=== PATIENT | female | born 1955 | race Caucasian/White ===

== ENCOUNTER 2018-01-04 11:19 | Emergency (ER) | payer MEDICAID ==
[~2018-01-04] VITALS: Ht 167.6 cm; Wt 80.4 kg
[~2018-01-04 11:19] MED LIST: NO HOME MEDS
[2018-01-04 11:47] LABS: BASOPHILS % (AUTO) 0.3 % (0-1); EOSINOPHILS % (AUTO) 0.6 % (0-6); HEMATOCRIT 35.5 % (35.0-45.0); HEMOGLOBIN 12.6 g/dl (12.0-16.0); LYMPHOCYTES # (AUTO) 2.2 X10'3 (1.1-4.8); LYMPHOCYTES % (AUTO) 43.9 % (21-51); MEAN CORPUSCULAR HEMOGLOBIN 30.5 PG (27.0-31.0); MEAN CORPUSCULAR HGB CONC 35.4 % (33.0-36.5); MEAN CORPUSCULAR VOLUME 86.3 FL (78-98); MEAN PLATELET VOLUME 7.2 FL (7.4-10.4); MONOCYTES # (AUTO) 0.7 X10'3 (0-0.9); MONOCYTES % (AUTO) 14.1 % (2-12); NEUTROPHILS # (AUTO) 2.1 X10'3 (1.8-7.7); NEUTROPHILS % (AUTO) 41.1 % (42-75); PLATELET COUNT 113 X10'3 (140-440); RED BLOOD COUNT 4.11 X10'6 (4.20-5.60); RED CELL DISTRIBUTION WIDTH 13.6 % (11.5-14.5)
[2018-01-04 12:03] LABS: ALANINE AMINOTRANSFERASE 105 U/L (12-78); ALBUMIN 3.3 G/DL (3.4-5.0); ALBUMIN/GLOBULIN RATIO 0.6 (1.1-1.5); ALKALINE PHOSPHATASE 71 IU/L (46-116); ANION GAP 10 (8-16); ASPARTATE AMINO TRANSFERASE 95 U/L (10-37); BILIRUBIN,TOTAL 0.8 MG/DL (0.1-1.0); BLOOD UREA NITROGEN 16 MG/DL (7-18); CHLORIDE 106 MMOL/L (99-107); CREATININE 0.94 MG/DL (0.40-0.90); POTASSIUM 3.8 MMOL/L (3.5-5.1); SODIUM 141 MMOL/L (135-145); TOTAL CARBON DIOXIDE 25.4 MMOL/L (24-32); TOTAL PROTEIN 8.9 G/DL (6.4-8.2); eGFR 61 ML/MIN
[2018-01-04 12:04] LABS: GLUCOSE 95 MG/DL (70-104)
[2018-01-04 12:11] LABS: INR 1.1 INR; PARTIAL THROMBOPLASTIN TIME 27 SECONDS (22-32); PROTHROMBIN TIME 10.4 SECONDS (9.0-12.0)
[2018-01-04] MEDS ORDERED: aspirin 325mg tablet PO ONE (13:45)
[2018-01-04 14:26] VITALS: BP 144/78
== END 2018-01-04 14:27 | disposition left against medical advice (07) ==
LOC: ER 11:20
DX: R07.89 Other chest pain (principal); R00.0 Tachycardia, unspecified; I10 Essential (primary) hypertension; Z88.5 Allergy status to narcotic agent
CPT/HCPCS: 36415; 71045; 80053; 84484; 85025; 85610; 85730; 93005; 99285

== ENCOUNTER 2021-02-28 12:23 | Emergency (ER) | payer MEDICAID | END 2021-02-28 13:10 | disposition left against medical advice (07) | LOC: ER 12:23 | DX: T63.301A Toxic effect of unspecified spider venom, accidental (unintentional), initial encounter (principal); Z53.21 Procedure and treatment not carried out due to patient leaving prior to being seen by health care provider; X58.XXXA Exposure to other specified factors, initial encounter ==

== ENCOUNTER 2022-04-16 22:36 | Inpatient (IN) | payer MEDICAID ==
[~2022-04-16] VITALS: Ht 167.6 cm; Wt 95.0 kg
[2022-04-16 23:44] LABS: BASOPHILS % (AUTO) 0.3 % (0-1); EOSINOPHILS % (AUTO) 0.5 % (0-6); HEMATOCRIT 36.9 % (35.0-45.0); HEMOGLOBIN 12.8 g/dl (12.0-16.0); LYMPHOCYTES # (AUTO) 1.6 X10'3 (1.1-4.8); LYMPHOCYTES % (AUTO) 34.1 % (21-51); MEAN CORPUSCULAR HEMOGLOBIN 29.3 PG (27.0-31.0); MEAN CORPUSCULAR HGB CONC 34.6 g/dL (33.0-36.5); MEAN CORPUSCULAR VOLUME 84.5 FL (78-98); MEAN PLATELET VOLUME 8.1 FL (7.4-10.4); MONOCYTES # (AUTO) 2.2 X10'3 (0-0.9); MONOCYTES % (AUTO) 45.2 % (2-12); NEUTROPHILS % (AUTO) 19.9 % (42-75); PLATELET COUNT 84 X10'3 (140-440); RED BLOOD COUNT 4.36 X10'6 (4.20-5.60); RED CELL DISTRIBUTION WIDTH 14.7 % (11.5-14.5); WHITE BLOOD COUNT 4.8 X10'3 (4.5-11.0)
[2022-04-17 00:16] LABS: ALANINE AMINOTRANSFERASE 55 U/L (12-78); ALBUMIN 2.5 G/DL (3.4-5.0); ALBUMIN/GLOBULIN RATIO 0.4 (1.1-1.5); ALKALINE PHOSPHATASE 57 IU/L (46-116); ANION GAP 6 (8-16); ASPARTATE AMINO TRANSFERASE 77 U/L (10-37); BILIRUBIN,TOTAL 1.2 MG/DL (0.1-1.0); BLOOD UREA NITROGEN 12 MG/DL (7-18); BUN/CREATININE RATIO 14.3 (6.6-38.0); CHLORIDE 105 MMOL/L (99-107); CREATININE 0.84 MG/DL (0.40-0.90); SODIUM 137 MMOL/L (135-145); TOTAL CARBON DIOXIDE 25.8 MMOL/L (24-32); TOTAL PROTEIN 8.1 G/DL (6.4-8.2); eGFR 68 ML/MIN
[2022-04-17 00:18] LABS: GLUCOSE 152 MG/DL (70-104)
[2022-04-17 00:19] LABS: POTASSIUM 2.8 MMOL/L (3.5-5.1)
[2022-04-17] MEDS ORDERED: ringers solution, lactated 1000ml IV soln IV ONE (00:25)
[2022-04-17] MEDS ORDERED: potassium Cl 10 mEq/100mL bag IV ONE (00:25)
[2022-04-17] MEDS ORDERED: POTASSIUM BICARB 20meq eff tab 20 MEQ TABLET.EFF PO ONE ×2 (00:25)
[2022-04-17 01:03] LABS: TOTAL CELLS COUNTED 100
[2022-04-17 01:06] LABS: PLATELET ESTIMATE DECREASED
[2022-04-17] MEDS ORDERED: LIDOcaine 1% W/epiNEPHrine 1:100,000 20ml vial SQ ONE (03:30)
[2022-04-17 04:08] LABS: COLOR,URINE YELLOW (Yellow); GLUCOSE, URINE NEGATIVE (Neg); KETONES,URINE NEGATIVE (Neg); LEUKOCYTE ESTERASE ,URINE NEGATIVE (Neg); NITRITES, URINE NEGATIVE (Neg); OCCULT BLOOD,URINE MODERATE (Neg); PROTEIN,URINE NEGATIVE (Neg)
[2022-04-17 04:09] LABS: CLARITY,URINE SLIGHTLY CLOUDY (Clear)
[2022-04-17] MEDS ORDERED: diltiazem 5mg/ml 5ml inj. IV ONE (04:25)
[2022-04-17] MEDS ORDERED: enoxaparin 100mg/ml syringe SUBCUT ONE ×2 (04:25)
[2022-04-17 04:27] LABS: BACTERIA,URINE NONE SEEN /HPF (Neg); MUCUS STRANDS NONE SEEN /LPF (Neg); RBC,URINE 0-2 /HPF (0-2); SQUAMOUS EPITHELIAL CELL,UR MODERATE /LPF (FEW); UA COLLECTION TYPE CLN CATCH MIDSTREAM; WBC,URINE 0-4 /HPF (0-4)
[2022-04-17] MEDS ORDERED: diltiazem-NS 100mg/100ml 100 ML IV SCH (04:30)
[2022-04-17] MEDS ORDERED: HYDROcodone/acetaminophen 5mg/325mg tablet PO PRN (05:05)
[2022-04-17] MEDS ORDERED: magnesium Cl slow-release 64mg tablet PO PRN (05:05)
[2022-04-17] MEDS ORDERED: POTASSIUM BICARB 20meq eff tab 20 MEQ TABLET.EFF PO PRN (05:05)
[2022-04-17] MEDS ORDERED: HYDROcodone/acetaminophen 10/325mg tab PO PRN (05:05)
[2022-04-17] MEDS ORDERED: magnesium 4gm in 100ml NS 100 ML IV PRN (05:05)
[2022-04-17] MEDS ORDERED: potassium CL 10mEq/100ml bag 100 ML IV PRN (05:05)
[2022-04-17] MEDS ORDERED: magnesium hydroxide 30ml (MOM) UD suspension PO PRN (05:05)
[2022-04-17] MEDS ORDERED: acetaminophen 325mg tablet PO PRN (05:05)
[2022-04-17] MEDS ORDERED: mag hydrox/Alum hydrox/simeth 30ml oral suspension PO PRN (05:05)
[2022-04-17] MEDS ORDERED: ondansetron/PF 4mg/2ml inj IV PRN (05:05)
[2022-04-17] MEDS ORDERED: magnesium 2GM in 50ml NS 50 ML IV PRN (05:05)
[2022-04-17] MEDS: apixaban 5mg tablet PO SCH ×2 (07:08→20:14)
[2022-04-17] MEDS: metoprolol tartrate 50mg tablet PO SCH ×2 (07:10→20:00)
[2022-04-17] MEDS: docusate sod 100mg capsule PO SCH ×2 (07:35→20:00)
[2022-04-17 07:53] LABS: POTASSIUM 3.3 MMOL/L (3.5-5.1)
[2022-04-17] MEDS: K and/or MAG REPLACEMENT MC SCH ×2 (07:59→20:00)
[2022-04-17] MEDS: POTASSIUM BICARB 20meq eff tab 20 MEQ TABLET.EFF PO PRN ×3 (08:05→21:30)
--- NOTE | 2022-04-17 08:45 | NUR ---
Spoke with Dr Coates regarding patient new onset skip heart rate. pt is assymptomatic to skip rhythm, md advised to just observe the patient and call him back if there are any changes or if the patient becomes symptomatic. Cardizen has been off for approx. 45 minutes.
[2022-04-17 14:51] LABS: APTT 32 SECONDS (22-32); D-DIMER 1.61 MG/L FEU (0-0.50)
[2022-04-17 16:34] VITALS: BP 143/54
[2022-04-17 17:00] VITALS: BP 137/62
[2022-04-17 18:01] VITALS: BP 141/77
--- NOTE | 2022-04-17 18:26 | NUR ---
Problems reprioritized. Patient report given, questions answered & plan of care reviewed with Esther Adams RN.
--- NOTE | 2022-04-17 18:27 | NUR ---
Patient in room CICU 2006. I have received report from Esther Zamora RN and Ewa ALAS and had the opportunity to ask questions and assume patient care.
[2022-04-17 19:00] VITALS: BP 147/60
[2022-04-18] VITALS: BP 160/70
--- NOTE | 2022-04-18 00:06 | NUR ---
patient resting comfortably, heart rate drops down to the mid 40s while sleeping, blood pressure remains in the 140s and patient is asymptomatic.
[2022-04-18 04:00] VITALS: BP 131/71
[2022-04-18 04:11] LABS: BASOPHILS % (AUTO) 0.2 % (0-1); EOSINOPHILS % (AUTO) 0.8 % (0-6); HEMATOCRIT 35.9 % (35.0-45.0); HEMOGLOBIN 12.4 g/dl (12.0-16.0); LYMPHOCYTES # (AUTO) 2.3 X10'3 (1.1-4.8); LYMPHOCYTES % (AUTO) 49.2 % (21-51); MEAN CORPUSCULAR HEMOGLOBIN 29.4 PG (27.0-31.0); MEAN CORPUSCULAR HGB CONC 34.6 g/dL (33.0-36.5); MEAN CORPUSCULAR VOLUME 84.9 FL (78-98); MEAN PLATELET VOLUME 7.9 FL (7.4-10.4); MONOCYTES # (AUTO) 1.6 X10'3 (0-0.9); MONOCYTES % (AUTO) 33.2 % (2-12); NEUTROPHILS # (AUTO) 0.8 X10'3 (1.8-7.7); NEUTROPHILS % (AUTO) 16.6 % (42-75); PLATELET COUNT 87 X10'3 (140-440); RED BLOOD COUNT 4.23 X10'6 (4.20-5.60); WHITE BLOOD COUNT 4.7 X10'3 (4.5-11.0)
[2022-04-18 04:24] LABS: ALANINE AMINOTRANSFERASE 55 U/L (12-78); ALBUMIN 2.4 G/DL (3.4-5.0); ALBUMIN/GLOBULIN RATIO 0.5 (1.1-1.5); ALKALINE PHOSPHATASE 47 IU/L (46-116); ANION GAP 7 (8-16); ASPARTATE AMINO TRANSFERASE 80 U/L (10-37); BILIRUBIN,TOTAL 1.4 MG/DL (0.1-1.0); BLOOD UREA NITROGEN 17 MG/DL (7-18); BUN/CREATININE RATIO 22.7 (6.6-38.0); CALCIUM 8.3 MG/DL (8.5-10.1); CHLORIDE 105 MMOL/L (99-107); CREATININE 0.75 MG/DL (0.40-0.90); POTASSIUM 3.8 MMOL/L (3.5-5.1); SODIUM 138 MMOL/L (135-145); TOTAL CARBON DIOXIDE 26.2 MMOL/L (24-32); TOTAL PROTEIN 7.7 G/DL (6.4-8.2); eGFR 77 ML/MIN
[2022-04-18 04:46] LABS: GLUCOSE 87 MG/DL (70-104)
--- NOTE | 2022-04-18 06:14 | NUR ---
Problems reprioritized. Patient report given, questions answered & plan of care reviewed with debra ALAS.
--- NOTE | 2022-04-18 06:26 | NUR ---
Patient in room CICU 2006. I have received report from Esther ALAS and had the opportunity to ask questions and assume patient care.
[2022-04-18 06:41] LABS: PLATELET ESTIMATE DECREASED; TOTAL CELLS COUNTED 100
[2022-04-18 06:42] LABS: SMUDGE CELLS 1+
[2022-04-18 08:00] VITALS: BP 154/94
[2022-04-18] MEDS: apixaban 5mg tablet PO SCH (08:20)
[2022-04-18] MEDS: docusate sod 100mg capsule PO SCH (08:20)
[2022-04-18] MEDS: K and/or MAG REPLACEMENT MC SCH (08:21)
[2022-04-18] MEDS: metoprolol tartrate 50mg tablet PO SCH (08:23)
--- NOTE | 2022-04-18 08:24 | NUR ---
Meds colace was held per pt request as she states she has diarrhea.
--- NOTE | 2022-04-18 09:15 | NUR ---
AM note Pt comfortable, positioning herself to comfort. Up to bedside commode w/out assistance. No complaint of pain presently. Tolerated breakfast well and feeding independently.
[2022-04-18] MEDS ORDERED: ASPI-611 PO (09:40)
[2022-04-18] MEDS ORDERED: METO50TA16 PO (09:40)
--- NOTE | 2022-04-18 09:48 | NUR ---
MD Visit Dr. Coates here to see pt. Plan is to discharge pt to home.
[2022-04-18 10:50] VITALS: BP 151/86
--- NOTE | 2022-04-18 11:17 | NUR ---
DC Note IV d/c'd with mild bleeding. 2x2 dressing applied with tape as pt on Eliquis. Pt able to dress self. Discharge forms completed and explained to pt. Pt states she has all her belongings in her purse. Discharged in WC to white pickup and friend. Pt loaded safely.
== END 2022-04-18 11:09 | disposition home or self-care (01) | DRG 137 ==
LOC: ER 22:37 → ED HOLD 04-17 05:20 → CICU 2S 04-17 16:33
PROVIDERS: ADMIT Internal Medicine; ATTEND Family Medicine
DX: U07.1 COVID-19 (principal); E44.0 Moderate protein-calorie malnutrition; C44.91 Basal cell carcinoma of skin, unspecified; E87.6 Hypokalemia; I48.0 Paroxysmal atrial fibrillation; R00.1 Bradycardia, unspecified; R74.01 Elevation of levels of liver transaminase levels; I10 Essential (primary) hypertension; Y92.230 Patient room in hospital as the place of occurrence of the external cause; T44.7X5A Adverse effect of beta-adrenoreceptor antagonists, initial encounter; Z28.310 Unvaccinated for COVID-19; Z79.01 Long term (current) use of anticoagulants; Z87.891 Personal history of nicotine dependence; Z91.19 Patient's noncompliance with other medical treatment and regimen; Z68.33 Body mass index [BMI] 33.0-33.9, adult; Z88.5 Allergy status to narcotic agent
CPT/HCPCS: 36415; 71045; 80053; 81001; 83605; 83735; 84132; 84145; 85007; 85025; 85379; 85610; 85730; 87040; 87081; 87502; 87503; 87635; 93306; 96361; 96374; 96375; 99285; A6212; A6258; C9803; G0378; J3480; J3490; J7120

== ENCOUNTER 2023-04-12 05:37 | Inpatient (IN) | payer MEDICAID ==
[2023-04-12] VITALS (19 sets, daily range): BP systolic 90–179; BP diastolic 50–114
[~2023-04-12] VITALS: Ht 167.6 cm; Wt 91.0 kg
[~2023-04-12 05:37] MED LIST changes: +METO50TA16 PO; -NO HOME MEDS
[2023-04-12] MEDS ORDERED: LORazepam 2 mg/ml vial IV ONE (05:45)
[2023-04-12] MEDS ORDERED: methylPREDNISolone sod succ 125mg/2ml vial IV ONE (05:45)
[2023-04-12] MEDS ORDERED: albuterol 2.5 MG/3 ML nebule CONTNEB PRN (05:45)
[2023-04-12] MEDS ORDERED: diltiazem 5mg/ml 5ml inj. IV ONE (05:50)
--- NOTE | 2023-04-12 05:52 | NUR ---
plan to intubate, Dr Ny at bedside, pt is anxious, unable to tolerate bipap
--- NOTE | 2023-04-12 05:55 | NUR ---
0555 Etomidate 20mg IV, Rocuronium 70mg IV given. HR 171, BP 186/137 96% on 0557 cardizem 20mg IV given, 93%, 7.5 ETtube pt intubated, +easy cap, even rise and fall of chest, lung sounds bilaterally, 24 at the gum per RT 0600 HR 188, RR24, 179/114, BVM by RT 88% fi02 100% 0601 solumedrol 125mg IV given
[2023-04-12 06:01] LABS: PLATELET COUNT 155 X10'3 (140-440)
[2023-04-12 06:03] LABS: BASOPHILS # (AUTO) 0.1 X10'3 (0-0.2); BASOPHILS % (AUTO) 0.3 % (0-1); EOSINOPHILS % (AUTO) 0.2 % (0-6); HEMATOCRIT 41.6 % (35.0-45.0); HEMOGLOBIN 13.7 g/dl (12.0-16.0); LYMPHOCYTES # (AUTO) 10.6 X10'3 (1.1-4.8); LYMPHOCYTES % (AUTO) 58.3 % (21-51); MEAN CORPUSCULAR HGB CONC 32.9 g/dL (33.0-36.5); MEAN CORPUSCULAR VOLUME 91.3 FL (78-98); MEAN PLATELET VOLUME 8.8 FL (7.4-10.4); MONOCYTES # (AUTO) 3.3 X10'3 (0-0.9); MONOCYTES % (AUTO) 18.2 % (2-12); NEUTROPHILS # (AUTO) 4.2 X10'3 (1.8-7.7); RED BLOOD COUNT 4.55 X10'6 (4.20-5.60); RED CELL DISTRIBUTION WIDTH 15.8 % (11.5-14.5); WHITE BLOOD COUNT 18.1 X10'3 (4.5-11.0)
[2023-04-12] MEDS ORDERED: LIDOcaine 2% 10ml TOPICAL JELLY (Urojet) TP ONE (06:05)
[2023-04-12 06:09] LABS: ALANINE AMINOTRANSFERASE 50 U/L (12-78); ALBUMIN 3.1 G/DL (3.4-5.0); ALKALINE PHOSPHATASE 92 IU/L (46-116); ANION GAP 13 (8-16); BLOOD UREA NITROGEN 18 MG/DL (7-18); CHLORIDE 103 MMOL/L (99-107); CREATININE 1.06 MG/DL (0.40-0.90); POTASSIUM 3.5 MMOL/L (3.5-5.1); SODIUM 140 MMOL/L (135-145); TOTAL CARBON DIOXIDE 24.3 MMOL/L (24-32); eGFR 52 ML/MIN
[2023-04-12] MEDS ORDERED: diltiazem-NS 100mg/100ml 100 ML IV SCH (06:10)
[2023-04-12 06:22] LABS: ALBUMIN/GLOBULIN RATIO 0.5 (1.1-1.5); ASPARTATE AMINO TRANSFERASE 67 U/L (10-37); BILIRUBIN,TOTAL 1.4 MG/DL (0.1-1.0); CALCIUM 8.6 MG/DL (8.5-10.1); GLUCOSE 140 MG/DL (70-104); TOTAL PROTEIN 8.9 G/DL (6.4-8.2)
[2023-04-12] MEDS: propofol 1000mg/100ml bottle 100 ML IV SCH ×4 (06:26→23:40)
[2023-04-12] MEDS ORDERED: nitroGLYCERIN-Tridil 50MG/D5W 250 ML IV SCH (06:30)
[2023-04-12 06:32] LABS: PLATELET ESTIMATE NORMAL; TOTAL CELLS COUNTED 100
--- NOTE | 2023-04-12 06:44 | NUR ---
RT at Bedside.
--- NOTE | 2023-04-12 06:44 | NUR ---
central line setup ready at bedside .
--- NOTE | 2023-04-12 06:53 | NUR ---
NOTIFIED MD THAT CENTRAL LINE SETUP IS READY ,NITRO DRIP IS READY BUT NO ACCESS IS AVAILABLE TO START THE DRIP ,WAITING ON CENTRAL LINE PLACEMENT TO START THE INFUSION.RT AT BEDSIDE FOR ABG ,PT SPO2 79% ON FIO2 100%.
[2023-04-12 07:02] LABS: ABG HCO3 18.3 mmol/L (22.0-26.0); ABG OXYGEN SATURATION 80.9 % (94-97); ABG PCO2 (T) 55.8 mmHg (32.0-45.0); ABG PO2 (T) 64.1 mmHg (75.0-100.0); ALLEN'S TEST POSITIVE; FCOHb 1.4 % (0.0-3.9); FMetHb 0.4 % (0.0-1.5); FO2Hb 79.4 % (94-97); PATIENT TEMPERATURE 37.7; PEEP 8 cm H2O; RESPIRATORY RATE 16 b/min; TIDAL VOLUME 450 mL; TOTAL HEMOGLOBIN 15.5 G/dl (12.0-16.0)
--- NOTE | 2023-04-12 07:36 | NUR ---
VERBAL ORDER FROM DR TOUSSAINT TO START THE NITRO DRIP AT 20 MCG /MIN .FOLLOWED THE ORDER ,CENTRAL LINE PLACED BY DR TOUSSAINT ,SWITCHED THE IV DRIP TO CENTRAL LINE.
--- NOTE | 2023-04-12 07:55 | NUR ---
Prop bolus 5mg
[2023-04-12 08:10] LABS: ABG HCO3 19.5 mmol/L (22.0-26.0); ABG OXYGEN SATURATION 89.4 % (94-97); ABG PCO2 (T) 49.1 mmHg (32.0-45.0); ABG PO2 (T) 76.7 mmHg (75.0-100.0); ALLEN'S TEST POSITIVE; FCOHb 2.2 % (0.0-3.9); FMetHb 0.3 % (0.0-1.5); FO2Hb 87.2 % (94-97); PATIENT TEMPERATURE 37.7; PEEP 12 cm H2O; RESPIRATORY RATE 22 b/min; TIDAL VOLUME 450 mL; TOTAL HEMOGLOBIN 14.9 G/dl (12.0-16.0)
--- NOTE | 2023-04-12 08:10 | NUR ---
notified md simmons that pt has fever of 100.4,wbc are up ,bolus propofol admin twice in last 30 min .bp in 140's systolic as per md he will put the orders for amiod drip ,tylenol iv,iv abx.
[2023-04-12] MEDS ORDERED: CefTRIAXone 2gm/D5W 50ml BAG 50 ML IV ONE (08:15)
[2023-04-12] MEDS ORDERED: dexmedetomidin/NS 400mcg/100ml 100 ML IV SCH (08:15)
[2023-04-12] MEDS ORDERED: amiodarone 150mg/dext, iso-os 100 ML IV ONE (08:15)
--- NOTE | 2023-04-12 08:16 | NUR ---
Rt at bedside ,Aircraft Communicator has requested for suctioning the ET Tube.
--- NOTE | 2023-04-12 08:20 | NUR ---
PROPOFOL LINE HAS AIR BUBBLE ACCUMULATED ,PRIME THE LINE WASTED THE MED IN ENTIRE TUBING AND SWITCHED WITH DIFFERENT IV TUBING PUMP WAS KEEP ON ALARMING FOR ACCUMALTED AIR EVEN AFTER PRIMIMG IT TWICE AND WASTING THE DOSE.
[2023-04-12] MEDS: amiodarone/D5 360MG/200ML BAG 200 ML IV SCH ×4 (08:55→23:40)
--- NOTE | 2023-04-12 09:08 | NUR ---
DR QUINTANILLA AT BEDSIDE ALONG WITH DR TOUSSAINT ,ORDER TO STOP THE NITRO DRIP FOR LOW BP ,AWARE OF NO URINE OUTPUT ,NO IV FLUID BOLUS FOR PULMONARY EDEMA.WILL FOLLOW THE ORDERS.
--- NOTE | 2023-04-12 09:46 | NUR ---
Precedex stopped per ICU MD.
--- NOTE | 2023-04-12 09:50 | NUR ---
ICU MD at bedside and verbal for 60mg Lasix
[2023-04-12] MEDS ORDERED: furosemide 10 MG/1 ML 10ml inj IV ONE (09:55)
[2023-04-12] MEDS ORDERED: magnesium hydroxide 30ml (MOM) UD suspension PO PRN ×3 (10:05→10:55)
[2023-04-12] MEDS ORDERED: morphine 4 MG/ML inj SYRINge IV PRN (10:05)
[2023-04-12] MEDS ORDERED: ondansetron/PF 4mg/2ml inj IV PRN ×3 (10:05→10:55)
[2023-04-12] MEDS ORDERED: acetaminophen 325mg tablet PO PRN ×5 (10:05→10:55)
[2023-04-12] MEDS ORDERED: morphine 2 MG/ML inj. syringe IV PRN (10:05)
--- NOTE | 2023-04-12 10:07 | NUR ---
Pharmacy is working on Fentnyl drip ,Once its ready they will deliver it to ER.
--- NOTE | 2023-04-12 10:19 | NUR ---
ATTEMPTED TO CALL CHRIS AND JIMMYT OTHER TO INFORM THAT PT WAS IN THE ER. NOK PHONE # IS NOT IN SERVICE; SIGNIFICANT OTHER PHONE # WAS UNABLE TO ACCEPT MSGS.
[2023-04-12] MEDS: FENTANYL-0.9 % NACL/PF 100 ML IV PRN (10:33)
--- NOTE | 2023-04-12 10:38 | NUR ---
NOTIFIED THAT PT HAS TEMP OF 37.7 ,THERE IS NO ORDER FOR IV TYLENOL,VERBAL ORDER TO GIVE TYLENOL 1 GM FOR FEVER. Addendum: 04/12/23 at 1039 by ROMAIN TYLENOL 1GM IV ONCE FOR FEVER.
--- NOTE | 2023-04-12 10:39 | NUR ---
RT AT BEDSIDE.
--- NOTE | 2023-04-12 10:42 | NUR ---
Attempt to call report but ICU primary rn is busy transfering the pt at this time,call the freelance writer back when she is available.
[2023-04-12] MEDS ORDERED: acetaminophen 1,000mg/100ml IV 100 ML IV ONE (10:45)
[2023-04-12] MEDS ORDERED: magnesium 4gm in 100ml NS 100 ML IV PRN (10:55)
[2023-04-12] MEDS ORDERED: ipratropium/albuterol 3ml nebule NEB PRN (10:55)
[2023-04-12] MEDS ORDERED: FENTANYL-0.9 % NACL/PF 100 ML IV PRN (10:55)
[2023-04-12] MEDS ORDERED: mag hydrox/Alum hydrox/simeth 30ml oral suspension PO PRN (10:55)
[2023-04-12] MEDS ORDERED: magnesium Cl slow-release 64mg tablet PO PRN (10:55)
[2023-04-12] MEDS ORDERED: magnesium 2GM in 50ml NS 50 ML IV PRN (10:55)
[2023-04-12] MEDS ORDERED: potassium Cl 20 mEq SR tablet PO PRN ×2 (10:55)
[2023-04-12] MEDS ORDERED: potassium Cl 40MEQ/1/2NS 520ml 520 ML IV PRN (10:55)
[2023-04-12] MEDS ORDERED: LidoCAINE 2% Topical Jelly 11mL syringe TOP ONE (10:55)
[2023-04-12] MEDS ORDERED: propofol 1000mg/100ml bottle 100 ML IV SCH (10:55)
--- NOTE | 2023-04-12 10:57 | NUR ---
DAUGHTER AT BEDSIDE UPDATED THE POC AND ICU TRANSFER ORDERS,WAITING FOR RN TO CALL US BACK.
--- NOTE | 2023-04-12 10:58 | NUR ---
WASTED PRECED DRIP VOLUME 92.08 WITH JAYY RN.
--- NOTE | 2023-04-12 11:10 | NUR ---
DR TOUSSAINT AT BEDSIDE ,INFORMING THE PT DAUGHTER THE POC AND PT CONDITION.
[2023-04-12 11:13] LABS: ABG BASE EXCESS -5.4 mmol/L (-2.0-2.0); ABG HCO3 19.7 mmol/L (22.0-26.0); ABG OXYGEN SATURATION 99.3 % (94-97); ABG PCO2 (T) 38.4 mmHg (32.0-45.0); ALLEN'S TEST POSITIVE; FCOHb 0.8 % (0.0-3.9); FMetHb 0.4 % (0.0-1.5); FO2Hb 98.1 % (94-97); PATIENT TEMPERATURE 37.8; PEEP 12 cm H2O; TIDAL VOLUME 500 mL; TOTAL HEMOGLOBIN 14.7 G/dl (12.0-16.0)
--- NOTE | 2023-04-12 11:15 | NUR ---
ATTEMPT TO CALL REPORT ,PRIMARY RN STILL BUSY ,ASKED IF CHARGE CAN TAKE REPORT PER CHARGE TERA SHE IS NOT TAKING THIS PT YA WAIT FOR THE PRIMARY RN TO TAKE REPORT SHE SHD BE DONE SOON.NOTIFIED ER CHARGE TERA ,AWARE ABOUT THE SITUATION.
--- NOTE | 2023-04-12 11:20 | NUR ---
RECEVIVED CALL DR QUINTANILLA FROM ICU TO INFORM THE HYDRAULIC BULL RIVETER OPERATOR THAT HE JUST PUT THE ICU ORDERS YA GIVE 10-15 MINS TO APPLIANCE PARTS COUNTER CLERK BEFORE CALLING THE REPOT.
--- NOTE | 2023-04-12 11:39 | NUR ---
PT DAUGHTER CHERRY AT BEDSIDE ,STATED OKAY TO GIVE INFORMATION TO ALAYNA AND PT DAUGHTER ONDINA.
--- NOTE | 2023-04-12 11:42 | NUR ---
NOTIFIED DR QUINTANILLA OVER THE PHONE THAT PT HAS NO URINE OUTPUT AFTER THE LASIX. PE RMD CHECK THE CATHETER PLACEMENT AND HE IS GOING TO PUT THE ORDERS FOR LASIX DRIP.
--- NOTE | 2023-04-12 11:54 | NUR ---
CHECKED THE WHEELER PLACEMENT WITH OSWALDO RN ,PLACEMENT IS CORRECT .
[2023-04-12] MEDS: NORepinephrine 8mg/ 250ml NS 250 ML IV SCH ×2 (13:11→23:40)
[2023-04-12] MEDS ORDERED: sod chloride 0.9% 10ml flush syringe IV ONE (14:00)
[2023-04-12] MEDS: furosemide 10 MG/1 ML 10ml inj IV SCH ×2 (14:00→19:48)
[2023-04-12] MEDS ORDERED: rocuronium 10mg/ml inj IV ONE (14:00)
[2023-04-12] MEDS ORDERED: etomidate 2mg/ml inj. ONE (14:00)
[2023-04-12] MEDS ORDERED: LANSOPRAZOLE 30 MG/10 ML NG SCH (14:00)
[2023-04-12] MEDS: pantoprazole 40MG/NS 100ML BAG 100 ML IV SCH (14:28)
[2023-04-12] MEDS: furosemide 40mg/4ml inj IV SCH ×2 (14:28→19:54)
[2023-04-12] MEDS: metolazone 2.5mg tablet PO SCH ×2 (14:29→19:54)
--- NOTE | 2023-04-12 15:18 | NUR ---
pt is intubated unable to DART.
[2023-04-12] MEDS: K and/or MAG REPLACEMENT MC SCH (19:48)
--- NOTE | 2023-04-12 19:52 | NUR ---
Dr. Aj rounded on pt before signing off. Asked if he'd like to keep pt on APRV or try a more traditional mode to see if she can be extubated tomorrow AM, would like to leave on APRV for the night. Added full dose lovenox as pt's Afib is new. No other changes in care. Reviewed labs.
[2023-04-12] MEDS ORDERED: docusate sod 100mg capsule PO SCH (20:00)
[2023-04-12] MEDS: enoxaparin 100mg/ml syringe SUBCUT SCH (20:06)
--- NOTE | 2023-04-12 22:37 | NUR ---
Did rounds with tele MD Dr. Garcia. Reviewed all care and assessment data. He would like the pt switched off of APRV mode ventilation but I told him I spoke to Dr. Aj who wanted to keep it going through the night. No other suggestions in care for the night.
[2023-04-13] VITALS (33 sets, daily range): BP systolic 90–126; BP diastolic 54–88
[2023-04-13 00:33] LABS: BASOPHILS % (AUTO) 0.2 % (0-1); EOSINOPHILS % (AUTO) 0 % (0-6); HEMATOCRIT 40.6 % (35.0-45.0); HEMOGLOBIN 13.6 g/dl (12.0-16.0); LYMPHOCYTES # (AUTO) 1.6 X10'3 (1.1-4.8); LYMPHOCYTES % (AUTO) 15.2 % (21-51); MEAN CORPUSCULAR HEMOGLOBIN 29.9 PG (27.0-31.0); MEAN CORPUSCULAR HGB CONC 33.5 g/dL (33.0-36.5); MEAN CORPUSCULAR VOLUME 89.4 FL (78-98); MEAN PLATELET VOLUME 8.6 FL (7.4-10.4); MONOCYTES # (AUTO) 1.2 X10'3 (0-0.9); MONOCYTES % (AUTO) 11.6 % (2-12); NEUTROPHILS # (AUTO) 7.5 X10'3 (1.8-7.7); PLATELET COUNT 159 X10'3 (140-440); RED BLOOD COUNT 4.54 X10'6 (4.20-5.60); RED CELL DISTRIBUTION WIDTH 16.1 % (11.5-14.5); WHITE BLOOD COUNT 10.3 X10'3 (4.5-11.0)
[2023-04-13 00:44] LABS: APTT 32 SECONDS (22-32)
[2023-04-13 00:48] LABS: ALANINE AMINOTRANSFERASE 51 U/L (12-78); ALBUMIN 2.8 G/DL (3.4-5.0); ALBUMIN/GLOBULIN RATIO 0.5 (1.1-1.5); ALKALINE PHOSPHATASE 65 IU/L (46-116); ANION GAP 10 (8-16); ASPARTATE AMINO TRANSFERASE 78 U/L (10-37); BILIRUBIN,TOTAL 1.2 MG/DL (0.1-1.0); BLOOD UREA NITROGEN 34 MG/DL (7-18); BUN/CREATININE RATIO 17.1 (10.0-20.0); CALCIUM 8.1 MG/DL (8.5-10.1); CHLORIDE 104 MMOL/L (99-107); CREATININE 1.99 MG/DL (0.40-0.90); MAGNESIUM 1.9 MG/DL (1.5-2.4); PHOSPHORUS 5.7 MG/DL (2.3-4.5); SODIUM 141 MMOL/L (135-145); TOTAL CARBON DIOXIDE 27.4 MMOL/L (24-32); TOTAL PROTEIN 8.2 G/DL (6.4-8.2); eGFR 25 ML/MIN
[2023-04-13 00:51] LABS: GLUCOSE 139 MG/DL (70-104)
--- NOTE | 2023-04-13 01:12 | NUR ---
Notified Dr. Garcia that's pt's creatinine jumped from 1.06 to 1.99. He would like the next dose of lasix held for now.
[2023-04-13] MEDS: furosemide 40mg/4ml inj IV SCH ×4 (01:16→19:41)
[2023-04-13 03:34] LABS: ABG BASE EXCESS -1.7 mmol/L (-2.0-2.0); ABG OXYGEN SATURATION 97.7 % (94-97); ABG PCO2 (T) 40.3 mmHg (32.0-45.0); ABG PO2 (T) 110.1 mmHg (75.0-100.0); ALLEN'S TEST Modified; FCOHb 0.6 % (0.0-3.9); FMetHb 0.4 % (0.0-1.5); FO2Hb 96.7 % (94-97); PATIENT TEMPERATURE 37.6; RESPIRATORY RATE 12 b/min; TOTAL HEMOGLOBIN 14.3 G/dl (12.0-16.0)
--- NOTE | 2023-04-13 04:58 | NUR ---
Notified Dr. Garcia of + blood culture. Ordered Vancomycin, pharmacy to dose.
[2023-04-13] MEDS: propofol 1000mg/100ml bottle 100 ML IV SCH ×2 (07:58→17:09)
[2023-04-13] MEDS: FENTANYL-0.9 % NACL/PF 100 ML IV PRN ×2 (07:58→22:51)
[2023-04-13] MEDS ORDERED: enoxaparin 40mg/0.4ml syringe SUBCUT SCH (08:00)
[2023-04-13] MEDS: enoxaparin 100mg/ml syringe SUBCUT SCH ×2 (08:00→19:42)
[2023-04-13] MEDS: K and/or MAG REPLACEMENT MC SCH ×2 (09:47→19:43)
[2023-04-13] MEDS: pantoprazole 40MG/NS 100ML BAG 100 ML IV SCH (10:02)
[2023-04-13] MEDS: docusate sodium 100mg/10ml UD cup PO SCH ×2 (10:02→19:42)
[2023-04-13] MEDS: metolazone 2.5mg tablet PO SCH ×2 (10:02→19:42)
[2023-04-13] MEDS: amiodarone/D5 360MG/200ML BAG 200 ML IV SCH ×3 (10:04→21:40)
--- NOTE | 2023-04-13 11:55 | NUR ---
Initial: Pt admit for acute respiratory failure with hypoxemia, A.fib with RVR, CHF, suspected YUNIOR, leukocytosis, and pulmonary edema. Pt with sepsis per MD progress note. Pt intubated and sedated with Propofol visualized at bedside to be running at 8.55 mL/hr providing 226 kcal/day. Pt with an OGT in place though no TF consult at this time. TF recs below for if expected prolonged intubation and to receive nutrition support. No documented BM since admit though pt receiving routine bowel care and has additional PRN bowel care available. Will continue to follow closely. Recommendations: 1) IF TF and Propofol at 8.55 mL/hr (226 kcal/day), continuous Vital HP with 55 mL/hr goal rate to provide 1320 mL total volume/day, 1320 kcal, 116 g protein, and 1104 mL water 2) Monitor Propofol rate and need to adjust TF recs; IF Propofol is discontinued, continuous Vital HP with 65 mL/hr goal rate 3) IF TF, additional water flush per physician in view of CHF; monitor serum Na 4) IF TF, prealbumin q Sunday/ 5) Routine bowel care 6) Daily scaled weights Addendum: 04/13/23 at [address] Amended: Links added.
[2023-04-13] MEDS: CefTRIAXone/D5W-Rocephin 1gm 50 ML IV SCH (12:42)
[2023-04-13] MEDS: dexmedetomidin/NS 400mcg/100ml 100 ML IV SCH ×2 (12:43→21:18)
[2023-04-13] MEDS: AZITHROMYCIN 500 MG in NS 250ml IV.SOLN IV SCH (12:43)
[2023-04-13] MEDS: mineral oil/petrolatum ophthal oint EACHEYE SCH ×2 (14:42→19:41)
--- NOTE | 2023-04-13 18:11 | NUR ---
Problems reprioritized. Patient report given, questions answered & plan of care reviewed with Lyssa ALAS.
--- NOTE | 2023-04-13 18:30 | NUR ---
Patient in room ICU 2040. I have received report from Francisco ALAS and had the opportunity to ask questions and assume patient care.
[2023-04-13] MEDS: NORepinephrine 8mg/ 250ml NS 250 ML IV SCH (21:42)
--- NOTE | 2023-04-13 23:01 | NUR ---
Rounds with Dr Garcia, no new orders, restraints to be renewed.
[2023-04-14] VITALS (34 sets, daily range): BP systolic 89–123; BP diastolic 47–73
[2023-04-14] MEDS: mineral oil/petrolatum ophthal oint EACHEYE SCH ×4 (02:07→20:39)
[2023-04-14] MEDS: furosemide 40mg/4ml inj IV SCH ×4 (02:07→20:38)
[2023-04-14 02:49] LABS: BASOPHILS % (AUTO) 0.2 % (0-1); EOSINOPHILS % (AUTO) 0 % (0-6); HEMATOCRIT 37.5 % (35.0-45.0); HEMOGLOBIN 12.5 g/dl (12.0-16.0); LYMPHOCYTES # (AUTO) 2.2 X10'3 (1.1-4.8); LYMPHOCYTES % (AUTO) 15.4 % (21-51); MEAN CORPUSCULAR HEMOGLOBIN 29.7 PG (27.0-31.0); MEAN CORPUSCULAR HGB CONC 33.3 g/dL (33.0-36.5); MEAN CORPUSCULAR VOLUME 89.3 FL (78-98); MEAN PLATELET VOLUME 8.6 FL (7.4-10.4); MONOCYTES # (AUTO) 3.4 X10'3 (0-0.9); MONOCYTES % (AUTO) 23.5 % (2-12); NEUTROPHILS # (AUTO) 8.8 X10'3 (1.8-7.7); NEUTROPHILS % (AUTO) 60.9 % (42-75); PLATELET COUNT 128 X10'3 (140-440); WHITE BLOOD COUNT 14.4 X10'3 (4.5-11.0)
[2023-04-14 02:53] LABS: APTT 34 SECONDS (22-32)
[2023-04-14 02:56] LABS: ANION GAP 9 (8-16); BILIRUBIN,TOTAL 1.4 MG/DL (0.1-1.0); BLOOD UREA NITROGEN 55 MG/DL (7-18); BUN/CREATININE RATIO 28.1 (10.0-20.0); CALCIUM 8.2 MG/DL (8.5-10.1); CHLORIDE 102 MMOL/L (99-107); CREATININE 1.96 MG/DL (0.40-0.90); PHOSPHORUS 4.9 MG/DL (2.3-4.5); SODIUM 143 MMOL/L (135-145); TOTAL CARBON DIOXIDE 32.2 MMOL/L (24-32); TOTAL PROTEIN 7.7 G/DL (6.4-8.2); eGFR 25 ML/MIN
[2023-04-14 02:57] LABS: ALANINE AMINOTRANSFERASE 51 U/L (12-78); ALBUMIN 2.7 G/DL (3.4-5.0); ALBUMIN/GLOBULIN RATIO 0.5 (1.1-1.5); ALKALINE PHOSPHATASE 53 IU/L (46-116); ASPARTATE AMINO TRANSFERASE 72 U/L (10-37)
[2023-04-14 03:02] LABS: GLUCOSE 102 MG/DL (70-104)
[2023-04-14] MEDS: potassium Cl 40MEQ/270ML bag 270 ML IV PRN ×3 (03:37→23:54)
[2023-04-14 03:41] LABS: ABG BASE EXCESS 5.9 mmol/L (-2.0-2.0); ABG OXYGEN SATURATION 91.5 % (94-97); ABG PO2 (T) 65.3 mmHg (75.0-100.0); ALLEN'S TEST Modified; FCOHb 0.5 % (0.0-3.9); FMetHb 0.3 % (0.0-1.5); FO2Hb 90.8 % (94-97); PATIENT TEMPERATURE 36.7; PEEP 7 cm H2O; RESPIRATORY RATE 12 b/min; TIDAL VOLUME 500 mL; TOTAL HEMOGLOBIN 13.8 G/dl (12.0-16.0)
[2023-04-14] MEDS: propofol 1000mg/100ml bottle 100 ML IV SCH ×3 (04:28→12:56)
--- NOTE | 2023-04-14 04:53 | NUR ---
Pt's HR 50's -60's on Amiodarone drip. Notified Dr Garcia who discontinued drip and ordered PO Amiodarone.
[2023-04-14 04:59] LABS: TOTAL CELLS COUNTED 100
[2023-04-14 05:00] LABS: ANISOCYTOSIS FEW; PLATELET ESTIMATE DECREASED
[2023-04-14] MEDS: VANCOMYCIN 750MG IV in NS 250 ML IV SCH (05:46)
--- NOTE | 2023-04-14 06:25 | NUR ---
Problems reprioritized. Patient report given, questions answered & plan of care reviewed with Dona ALAS.
[2023-04-14] MEDS: NORepinephrine 8mg/ 250ml NS 250 ML IV SCH ×2 (06:54→21:05)
[2023-04-14] MEDS: dexmedetomidin/NS 400mcg/100ml 100 ML IV SCH ×2 (07:16→17:14)
[2023-04-14] MEDS ORDERED: amiodarone 200mg tablet PO SCH (08:00)
[2023-04-14] MEDS: K and/or MAG REPLACEMENT MC SCH ×2 (08:00→20:00)
--- NOTE | 2023-04-14 08:33 | NUR ---
TF consult: Recommendations below have been updated in the EMR. Recommendations: 1) Given Propofol at 8.55 mL/hr (226 kcal/day), continuous Vital HP with 55 mL/hr goal rate to provide 1320 mL total volume/day, 1320 kcal, 116 g protein, and 1104 mL water 2) Monitor Propofol rate and need to adjust TF recs; IF Propofol is discontinued, continuous Vital HP with 65 mL/hr goal rate 3) Additional water flush per physician in view of CHF; monitor serum Na 4) Prealbumin q Sunday/ 5) Routine bowel care 6) Daily scaled weights Addendum: 04/14/23 at [address] Amended: Links added.
[2023-04-14] MEDS: AZITHROMYCIN 500 MG in NS 250ml IV.SOLN IV SCH (08:54)
[2023-04-14] MEDS: pantoprazole 40MG/NS 100ML BAG 100 ML IV SCH (08:55)
[2023-04-14] MEDS: docusate sodium 100mg/10ml UD cup PO SCH (08:55)
[2023-04-14] MEDS: FENTANYL-0.9 % NACL/PF 100 ML IV PRN ×2 (08:57→15:29)
[2023-04-14 08:58] LABS: CLARITY,URINE CLEAR (Clear); COLOR,URINE YELLOW (Yellow); GLUCOSE, URINE NEGATIVE (Neg); KETONES,URINE NEGATIVE (Neg); LEUKOCYTE ESTERASE ,URINE NEGATIVE (Neg); NITRITES, URINE NEGATIVE (Neg); OCCULT BLOOD,URINE NEGATIVE (Neg); PH,URINE 5.5 (4.8-8.0); PROTEIN,URINE NEGATIVE (Neg); UROBILINOGEN,URINE 0.2 E.U/dL (0.2-1.0)
[2023-04-14] MEDS: enoxaparin 100mg/ml syringe SUBCUT SCH ×2 (08:58→20:39)
[2023-04-14] MEDS: CefTRIAXone/D5W-Rocephin 1gm 50 ML IV SCH (08:58)
[2023-04-14 08:59] LABS: UA COLLECTION TYPE FOLEY CATH
[2023-04-14] MEDS ORDERED: acetaminophen 325mg/10.15ml oral unit dose solution OGT PRN (12:50)
[2023-04-14] MEDS ORDERED: potassium Cl 40MEQ/270ML bag 250 ML IV ONE (16:55)
--- NOTE | 2023-04-14 18:30 | NUR ---
Patient in room ICU 2040. I have received report from Dona ALAS and had the opportunity to ask questions and assume patient care along with Claude ALAS.
[2023-04-14] MEDS: docusate sodium 100mg/10ml UD cup OGT SCH (20:39)
[2023-04-14] MEDS: amiodarone 200mg tablet OGT SCH (20:40)
[2023-04-15] VITALS (32 sets, daily range): BP systolic 86–131; BP diastolic 45–69
[2023-04-15] MEDS: mineral oil/petrolatum ophthal oint EACHEYE SCH ×4 (02:30→19:50)
[2023-04-15] MEDS: furosemide 40mg/4ml inj IV SCH ×2 (02:35→06:42)
[2023-04-15] MEDS: dexmedetomidin/NS 400mcg/100ml 100 ML IV SCH (03:12)
[2023-04-15 03:52] LABS: ABG BASE EXCESS 10.7 mmol/L (-2.0-2.0); ABG HCO3 36.2 mmol/L (22.0-26.0); ABG OXYGEN SATURATION 94.2 % (94-97); ABG PCO2 (T) 52.1 mmHg (32.0-45.0); ABG PO2 (T) 79.7 mmHg (75.0-100.0); FCOHb 0.6 % (0.0-3.9); FMetHb 0.3 % (0.0-1.5); FO2Hb 93.4 % (94-97); PATIENT TEMPERATURE 37.5; PEEP 7 cm H2O; RESPIRATORY RATE 12 b/min; TIDAL VOLUME 500 mL
[2023-04-15 04:23] LABS: BASOPHILS % (AUTO) 0.2 % (0-1); EOSINOPHILS % (AUTO) 0.2 % (0-6); HEMATOCRIT 38.9 % (35.0-45.0); HEMOGLOBIN 13.1 g/dl (12.0-16.0); LYMPHOCYTES # (AUTO) 2.7 X10'3 (1.1-4.8); LYMPHOCYTES % (AUTO) 27.8 % (21-51); MEAN CORPUSCULAR HGB CONC 33.6 g/dL (33.0-36.5); MEAN CORPUSCULAR VOLUME 89.4 FL (78-98); MEAN PLATELET VOLUME 8.9 FL (7.4-10.4); MONOCYTES # (AUTO) 2.7 X10'3 (0-0.9); MONOCYTES % (AUTO) 27.7 % (2-12); NEUTROPHILS # (AUTO) 4.2 X10'3 (1.8-7.7); NEUTROPHILS % (AUTO) 44.1 % (42-75); PLATELET COUNT 114 X10'3 (140-440); RED BLOOD COUNT 4.36 X10'6 (4.20-5.60); RED CELL DISTRIBUTION WIDTH 15.7 % (11.5-14.5); WHITE BLOOD COUNT 9.6 X10'3 (4.5-11.0)
[2023-04-15 04:46] LABS: ALANINE AMINOTRANSFERASE 50 U/L (12-78); ALBUMIN 2.7 G/DL (3.4-5.0); ALBUMIN/GLOBULIN RATIO 0.5 (1.1-1.5); ALKALINE PHOSPHATASE 58 IU/L (46-116); ANION GAP 8 (8-16); ASPARTATE AMINO TRANSFERASE 78 U/L (10-37); BILIRUBIN,TOTAL 1.9 MG/DL (0.1-1.0); BLOOD UREA NITROGEN 56 MG/DL (7-18); BUN/CREATININE RATIO 34.8 (10.0-20.0); CALCIUM 8.8 MG/DL (8.5-10.1); CHLORIDE 102 MMOL/L (99-107); CREATININE 1.61 MG/DL (0.40-0.90); MAGNESIUM 1.9 MG/DL (1.5-2.4); PHOSPHORUS 3.3 MG/DL (2.3-4.5); SODIUM 146 MMOL/L (135-145); TOTAL CARBON DIOXIDE 35.6 MMOL/L (24-32); TOTAL PROTEIN 8.1 G/DL (6.4-8.2); eGFR 32 ML/MIN
[2023-04-15 04:48] LABS: GLUCOSE 95 MG/DL (70-104)
[2023-04-15] MEDS: potassium Cl 20mEq/100mL bag 100 ML IV SCH ×4 (05:45→09:22)
[2023-04-15] MEDS: VANCOMYCIN 750MG IV in NS 250 ML IV SCH (05:46)
[2023-04-15] MEDS: amiodarone 200mg tablet OGT SCH ×2 (06:41→19:50)
[2023-04-15] MEDS: docusate sodium 100mg/10ml UD cup OGT SCH ×2 (06:42→19:50)
[2023-04-15] MEDS: pantoprazole 40MG/NS 100ML BAG 100 ML IV SCH (06:42)
[2023-04-15] MEDS: AZITHROMYCIN 500 MG in NS 250ml IV.SOLN IV SCH (06:42)
[2023-04-15] MEDS: CefTRIAXone/D5W-Rocephin 1gm 50 ML IV SCH (06:43)
[2023-04-15] MEDS: enoxaparin 100mg/ml syringe SUBCUT SCH (06:43)
[2023-04-15] MEDS: K and/or MAG REPLACEMENT MC SCH ×2 (06:44→20:00)
[2023-04-15] MEDS ORDERED: acetaZOLAMIDE IV 500mg inj IV ONE (08:00)
[2023-04-15 08:15] LABS: TOTAL CELLS COUNTED 100
[2023-04-15 08:16] LABS: PLATELET ESTIMATE DECREASED; SMUDGE CELLS 1+
[2023-04-15] MEDS: FENTANYL-0.9 % NACL/PF 100 ML IV PRN ×2 (09:01→17:12)
[2023-04-15] MEDS: propofol 1000mg/100ml bottle 100 ML IV SCH ×2 (09:22→17:12)
[2023-04-15] MEDS: NORepinephrine 8mg/ 250ml NS 250 ML IV SCH (11:00)
[2023-04-15] MEDS ORDERED: METO-395 PO (11:19)
[2023-04-15] MEDS ORDERED: ASPI-1174 PO (11:19)
[2023-04-15] MEDS ORDERED: potassium Cl 20 mEq SR tablet PO PRN (12:05)
[2023-04-15] MEDS ORDERED: potassium Cl 40MEQ/270ML bag 250 ML IV PRN (12:05)
[2023-04-15] MEDS ORDERED: potassium Cl 20mEq/100mL bag 100 ML IV PRN (12:05)
[2023-04-15] MEDS ORDERED: magnesium 2GM in 50ml NS 50 ML IV PRN (12:05)
[2023-04-15] MEDS ORDERED: magnesium 4gm in 100ml NS 100 ML IV PRN (12:05)
[2023-04-15] MEDS ORDERED: levoFLOXACIN-Levaquin 750MG/D5 150 ML IV SCH (13:00)
[2023-04-15 14:25] LABS: ALANINE AMINOTRANSFERASE 56 U/L (12-78); ALBUMIN 2.6 G/DL (3.4-5.0); ALBUMIN/GLOBULIN RATIO 0.5 (1.1-1.5); ALKALINE PHOSPHATASE 59 IU/L (46-116); ANION GAP 4 (8-16); ASPARTATE AMINO TRANSFERASE 117 U/L (10-37); BILIRUBIN,TOTAL 1.5 MG/DL (0.1-1.0); BLOOD UREA NITROGEN 59 MG/DL (7-18); BUN/CREATININE RATIO 38.8 (10.0-20.0); CALCIUM 8.7 MG/DL (8.5-10.1); CHLORIDE 99 MMOL/L (99-107); CREATININE 1.52 MG/DL (0.40-0.90); PHOSPHORUS 4.5 MG/DL (2.3-4.5); POTASSIUM 3.2 MMOL/L (3.5-5.1); SODIUM 141 MMOL/L (135-145); eGFR 34 ML/MIN
[2023-04-15 14:26] LABS: GLUCOSE 117 MG/DL (70-104)
[2023-04-15] MEDS ORDERED: potassium Cl 40MEQ/270ML bag 270 ML IV ONE (15:05)
--- NOTE | 2023-04-15 17:45 | NUR ---
End of shift recap; K replacing again, UA -, lasix changed to diamox, levo off, free water of 400cc q4 added, CMP q6h, vent FIo2 @ 50%.
[2023-04-15] MEDS: apixaban 5mg tablet PO SCH (19:50)
--- NOTE | 2023-04-15 22:46 | NUR ---
Assuming care, all prior care provided by Rasta.
[2023-04-15 23:27] LABS: ALANINE AMINOTRANSFERASE 58 U/L (12-78); ALBUMIN 2.5 G/DL (3.4-5.0); ALBUMIN/GLOBULIN RATIO 0.5 (1.1-1.5); ALKALINE PHOSPHATASE 60 IU/L (46-116); ANION GAP 7 (8-16); ASPARTATE AMINO TRANSFERASE 122 U/L (10-37); BILIRUBIN,TOTAL 1.5 MG/DL (0.1-1.0); BLOOD UREA NITROGEN 56 MG/DL (7-18); BUN/CREATININE RATIO 38.6 (10.0-20.0); CALCIUM 8.5 MG/DL (8.5-10.1); CHLORIDE 100 MMOL/L (99-107); CREATININE 1.45 MG/DL (0.40-0.90); MAGNESIUM 1.7 MG/DL (1.5-2.4); PHOSPHORUS 4.5 MG/DL (2.3-4.5); POTASSIUM 3.4 MMOL/L (3.5-5.1); SODIUM 144 MMOL/L (135-145); TOTAL CARBON DIOXIDE 36.7 MMOL/L (24-32); TOTAL PROTEIN 7.8 G/DL (6.4-8.2); eGFR 36 ML/MIN
[2023-04-15 23:28] LABS: GLUCOSE 110 MG/DL (70-104)
[2023-04-15] MEDS: potassium Cl 40MEQ/270ML bag 270 ML IV PRN (23:48)
[2023-04-16] VITALS (28 sets, daily range): BP systolic 81–128; BP diastolic 42–70
[2023-04-16] MEDS: NORepinephrine 8mg/ 250ml NS 250 ML IV SCH ×2 (01:03→15:06)
[2023-04-16] MEDS: mineral oil/petrolatum ophthal oint EACHEYE SCH ×4 (02:18→20:05)
[2023-04-16] MEDS: potassium Cl 40MEQ/270ML bag 270 ML IV PRN (02:21)
[2023-04-16] MEDS: propofol 1000mg/100ml bottle 100 ML IV SCH (02:54)
[2023-04-16] MEDS: FENTANYL-0.9 % NACL/PF 100 ML IV PRN (02:55)
[2023-04-16 03:00] LABS: BASOPHILS % (AUTO) 0.2 % (0-1); EOSINOPHILS % (AUTO) 0.3 % (0-6); HEMATOCRIT 36.2 % (35.0-45.0); HEMOGLOBIN 11.9 g/dl (12.0-16.0); LYMPHOCYTES # (AUTO) 1.8 X10'3 (1.1-4.8); LYMPHOCYTES % (AUTO) 29.4 % (21-51); MEAN CORPUSCULAR HGB CONC 32.9 g/dL (33.0-36.5); MEAN CORPUSCULAR VOLUME 91.2 FL (78-98); MEAN PLATELET VOLUME 8.9 FL (7.4-10.4); MONOCYTES # (AUTO) 1.4 X10'3 (0-0.9); MONOCYTES % (AUTO) 23.7 % (2-12); NEUTROPHILS # (AUTO) 2.8 X10'3 (1.8-7.7); NEUTROPHILS % (AUTO) 46.4 % (42-75); PLATELET COUNT 79 X10'3 (140-440); RED BLOOD COUNT 3.97 X10'6 (4.20-5.60); RED CELL DISTRIBUTION WIDTH 15.9 % (11.5-14.5)
[2023-04-16 03:06] LABS: ALANINE AMINOTRANSFERASE 55 U/L (12-78); ALBUMIN 2.4 G/DL (3.4-5.0); ALBUMIN/GLOBULIN RATIO 0.5 (1.1-1.5); ALKALINE PHOSPHATASE 58 IU/L (46-116); ANION GAP 6 (8-16); ASPARTATE AMINO TRANSFERASE 121 U/L (10-37); BILIRUBIN,TOTAL 1.4 MG/DL (0.1-1.0); BLOOD UREA NITROGEN 53 MG/DL (7-18); BUN/CREATININE RATIO 38.4 (10.0-20.0); CALCIUM 8.6 MG/DL (8.5-10.1); CHLORIDE 101 MMOL/L (99-107); CREATININE 1.38 MG/DL (0.40-0.90); MAGNESIUM 3.2 MG/DL (1.5-2.4); POTASSIUM 3.4 MMOL/L (3.5-5.1); SODIUM 142 MMOL/L (135-145); TOTAL CARBON DIOXIDE 35.2 MMOL/L (24-32); TOTAL PROTEIN 7.4 G/DL (6.4-8.2); eGFR 38 ML/MIN
[2023-04-16 03:15] LABS: ABG BASE EXCESS 9.1 mmol/L (-2.0-2.0); ABG HCO3 35.2 mmol/L (22.0-26.0); ABG OXYGEN SATURATION 95.7 % (94-97); ABG PCO2 (T) 54.5 mmHg (32.0-45.0); ABG PO2 (T) 85.8 mmHg (75.0-100.0); FCOHb 0.4 % (0.0-3.9); FMetHb 0.4 % (0.0-1.5); FO2Hb 94.9 % (94-97); PATIENT TEMPERATURE 36.9; PEEP 7 cm H2O; RESPIRATORY RATE 12 b/min; TIDAL VOLUME 500 mL; TOTAL HEMOGLOBIN 13.1 G/dl (12.0-16.0)
[2023-04-16 03:20] LABS: GLUCOSE 116 MG/DL (70-104)
[2023-04-16 03:32] LABS: APTT 34 SECONDS (22-32)
[2023-04-16] MEDS ORDERED: VANCOMYCIN LEVEL IV ONE (04:30)
[2023-04-16 04:37] LABS: PLATELET ESTIMATE DECREASED; SMUDGE CELLS 1+; TOTAL CELLS COUNTED 100
[2023-04-16 04:38] LABS: ANISOCYTOSIS FEW
[2023-04-16] MEDS: pantoprazole 40MG/NS 100ML BAG 100 ML IV SCH (08:29)
[2023-04-16] MEDS: amiodarone 200mg tablet OGT SCH ×2 (08:30→20:05)
[2023-04-16] MEDS: apixaban 5mg tablet PO SCH ×2 (08:30→20:00)
[2023-04-16] MEDS: K and/or MAG REPLACEMENT MC SCH ×2 (08:30→20:00)
[2023-04-16] MEDS: docusate sodium 100mg/10ml UD cup OGT SCH ×2 (08:30→20:05)
[2023-04-16 08:48] LABS: ALANINE AMINOTRANSFERASE 62 U/L (12-78); ALBUMIN 2.5 G/DL (3.4-5.0); ALBUMIN/GLOBULIN RATIO 0.5 (1.1-1.5); ALKALINE PHOSPHATASE 60 IU/L (46-116); ANION GAP 4 (8-16); ASPARTATE AMINO TRANSFERASE 124 U/L (10-37); BILIRUBIN,TOTAL 1.5 MG/DL (0.1-1.0); BLOOD UREA NITROGEN 55 MG/DL (7-18); BUN/CREATININE RATIO 41.4 (10.0-20.0); CALCIUM 8.8 MG/DL (8.5-10.1); CHLORIDE 100 MMOL/L (99-107); CREATININE 1.33 MG/DL (0.40-0.90); MAGNESIUM 2.8 MG/DL (1.5-2.4); PHOSPHORUS 4.1 MG/DL (2.3-4.5); POTASSIUM 3.3 MMOL/L (3.5-5.1); SODIUM 139 MMOL/L (135-145); TOTAL CARBON DIOXIDE 35.5 MMOL/L (24-32); TOTAL PROTEIN 7.8 G/DL (6.4-8.2); eGFR 40 ML/MIN
[2023-04-16] MEDS: acetaZOLAMIDE IV 500mg inj IV SCH ×2 (08:51→16:00)
[2023-04-16] MEDS: dexmedetomidin/NS 400mcg/100ml 100 ML IV PRN ×2 (08:53→23:18)
[2023-04-16 09:13] LABS: GLUCOSE 123 MG/DL (70-104)
[2023-04-16] MEDS ORDERED: potassium Cl 40MEQ/270ML bag 250 ML IV ONE ×2 (11:00→13:00)
[2023-04-16 13:39] LABS: ALANINE AMINOTRANSFERASE 56 U/L (12-78); ALBUMIN 2.3 G/DL (3.4-5.0); ALBUMIN/GLOBULIN RATIO 0.5 (1.1-1.5); ALKALINE PHOSPHATASE 54 IU/L (46-116); ANION GAP 2 (8-16); ASPARTATE AMINO TRANSFERASE 118 U/L (10-37); BILIRUBIN,TOTAL 1.4 MG/DL (0.1-1.0); CALCIUM 8.6 MG/DL (8.5-10.1); CHLORIDE 103 MMOL/L (99-107); CREATININE 1.31 MG/DL (0.40-0.90); MAGNESIUM 2.5 MG/DL (1.5-2.4); PHOSPHORUS 4.2 MG/DL (2.3-4.5); POTASSIUM 4.1 MMOL/L (3.5-5.1); SODIUM 138 MMOL/L (135-145); TOTAL CARBON DIOXIDE 32.6 MMOL/L (24-32); TOTAL PROTEIN 7.3 G/DL (6.4-8.2); eGFR 40 ML/MIN
[2023-04-16 13:51] LABS: BLOOD UREA NITROGEN 53 MG/DL (7-18); BUN/CREATININE RATIO 40.5 (10.0-20.0); GLUCOSE 136 MG/DL (70-104)
--- NOTE | 2023-04-16 20:00 | NUR ---
called Dr. Waller re: holding patient's apixaban due to decreasing platelet(79) and agreed on it. no active bleeding, monitored accordingly
[2023-04-16 21:17] LABS: ALANINE AMINOTRANSFERASE 57 U/L (12-78); ALBUMIN 2.4 G/DL (3.4-5.0); ALBUMIN/GLOBULIN RATIO 0.5 (1.1-1.5); ALKALINE PHOSPHATASE 57 IU/L (46-116); ANION GAP 8 (8-16); ASPARTATE AMINO TRANSFERASE 119 U/L (10-37); BILIRUBIN,TOTAL 1.1 MG/DL (0.1-1.0); BLOOD UREA NITROGEN 51 MG/DL (7-18); BUN/CREATININE RATIO 41.8 (10.0-20.0); CALCIUM 8.6 MG/DL (8.5-10.1); CHLORIDE 103 MMOL/L (99-107); CREATININE 1.22 MG/DL (0.40-0.90); MAGNESIUM 2.1 MG/DL (1.5-2.4); SODIUM 143 MMOL/L (135-145); TOTAL PROTEIN 7.5 G/DL (6.4-8.2); eGFR 44 ML/MIN
[2023-04-16 21:20] LABS: POTASSIUM 2.8 MMOL/L (3.5-5.1)
[2023-04-16 21:22] LABS: GLUCOSE 128 MG/DL (70-104)
[2023-04-17] VITALS (25 sets, daily range): BP systolic 92–138; BP diastolic 48–75
[2023-04-17] MEDS: acetaZOLAMIDE IV 500mg inj IV SCH ×3 (00:22→16:04)
[2023-04-17] MEDS: mineral oil/petrolatum ophthal oint EACHEYE SCH ×2 (02:00→07:44)
--- NOTE | 2023-04-17 02:20 | NUR ---
patient self extubated, hooked to 4LNC, alert and bit confused. clear breath sounds, no stridor, O2sat 92-95. updated Dr. Waller, maintain on nasal canula, no need for ABG, observe accordingly
[2023-04-17 03:13] LABS: BASOPHILS % (AUTO) 0.3 % (0-1); EOSINOPHILS % (AUTO) 0.4 % (0-6); HEMATOCRIT 34.8 % (35.0-45.0); HEMOGLOBIN 11.5 g/dl (12.0-16.0); LYMPHOCYTES # (AUTO) 1.1 X10'3 (1.1-4.8); MEAN CORPUSCULAR HEMOGLOBIN 29.9 PG (27.0-31.0); MEAN CORPUSCULAR HGB CONC 33.1 g/dL (33.0-36.5); MEAN CORPUSCULAR VOLUME 90.2 FL (78-98); MEAN PLATELET VOLUME 9.1 FL (7.4-10.4); MONOCYTES # (AUTO) 1.5 X10'3 (0-0.9); MONOCYTES % (AUTO) 26.7 % (2-12); NEUTROPHILS # (AUTO) 2.8 X10'3 (1.8-7.7); NEUTROPHILS % (AUTO) 51.6 % (42-75); PLATELET COUNT 68 X10'3 (140-440); RED BLOOD COUNT 3.86 X10'6 (4.20-5.60); WHITE BLOOD COUNT 5.5 X10'3 (4.5-11.0)
[2023-04-17 03:22] LABS: ALANINE AMINOTRANSFERASE 60 U/L (12-78); ALBUMIN 2.4 G/DL (3.4-5.0); ALBUMIN/GLOBULIN RATIO 0.5 (1.1-1.5); ALKALINE PHOSPHATASE 53 IU/L (46-116); ANION GAP 7 (8-16); ASPARTATE AMINO TRANSFERASE 118 U/L (10-37); BILIRUBIN,TOTAL 1.1 MG/DL (0.1-1.0); BLOOD UREA NITROGEN 47 MG/DL (7-18); BUN/CREATININE RATIO 40.9 (10.0-20.0); CALCIUM 8.7 MG/DL (8.5-10.1); CHLORIDE 104 MMOL/L (99-107); CREATININE 1.15 MG/DL (0.40-0.90); POTASSIUM 3.1 MMOL/L (3.5-5.1); SODIUM 143 MMOL/L (135-145); TOTAL CARBON DIOXIDE 31.9 MMOL/L (24-32); TOTAL PROTEIN 7.5 G/DL (6.4-8.2); eGFR 47 ML/MIN
[2023-04-17 03:25] LABS: GLUCOSE 108 MG/DL (70-104)
[2023-04-17 03:28] LABS: APTT 28 SECONDS (22-32)
[2023-04-17] MEDS: potassium Cl 40MEQ/270ML bag 270 ML IV PRN ×2 (03:46→05:45)
[2023-04-17 04:08] LABS: TOTAL CELLS COUNTED 100
[2023-04-17 04:10] LABS: PLATELET ESTIMATE DECREASED
[2023-04-17] MEDS: NORepinephrine 8mg/ 250ml NS 250 ML IV SCH (05:09)
[2023-04-17] MEDS: pantoprazole 40MG/NS 100ML BAG 100 ML IV SCH (07:38)
[2023-04-17] MEDS: docusate sodium 100mg/10ml UD cup OGT SCH ×2 (07:39→20:35)
[2023-04-17] MEDS: aspirin 325mg tablet PO SCH (07:39)
[2023-04-17] MEDS: amiodarone 200mg tablet OGT SCH ×2 (07:39→20:35)
[2023-04-17] MEDS: K and/or MAG REPLACEMENT MC SCH ×2 (07:44→20:44)
--- NOTE | 2023-04-17 07:46 | NUR ---
BSS done. Pt passed. No dentures here. Pureed diet recommended per Speech Therapist.
[2023-04-17] MEDS: levoFLOXACIN-Levaquin 750MG/D5 150 ML IV SCH (08:13)
--- NOTE | 2023-04-17 09:21 | NUR ---
Medicated with Zofran for dry heaving noted.
--- NOTE | 2023-04-17 09:39 | NUR ---
Ordered to give Eliquis. noted platelets to be 68.
[2023-04-17] MEDS: apixaban 5mg tablet PO SCH ×2 (09:49→20:35)
--- NOTE | 2023-04-17 09:56 | NUR ---
F/u 04/17: Pt self-extubated this AM advanced to pureed/thin diet per WEAVING SUPERVISOR recs though can have solids if dentures brought from home per EMR. PO pending first meal WL today. LBM 04/14 per physical assessment though no documented BM anywhere else in EMR; unsure accuracy though is receiving routine colace. Will monitor for PO trends and further nutrition intervention needs this admit. Recommendations: 1) Continue pureed/thin diet per WEAVING SUPERVISOR/MD recs; encourage PO 2) Monitor initial PO trends for ONS needs 3) Routine bowel care; LBM 04/14 though questionable 4) Daily scaled weights Addendum: 04/17/23 at [address] Amended: Links added.
[2023-04-17 11:05] LABS: BASOPHILS % (AUTO) 0.2 % (0-1); EOSINOPHILS % (AUTO) 0.2 % (0-6); HEMATOCRIT 36.5 % (35.0-45.0); HEMOGLOBIN 12.1 g/dl (12.0-16.0); LYMPHOCYTES # (AUTO) 1.9 X10'3 (1.1-4.8); LYMPHOCYTES % (AUTO) 22.4 % (21-51); MEAN CORPUSCULAR HEMOGLOBIN 30.1 PG (27.0-31.0); MEAN CORPUSCULAR HGB CONC 33.3 g/dL (33.0-36.5); MEAN CORPUSCULAR VOLUME 90.5 FL (78-98); MEAN PLATELET VOLUME 8.9 FL (7.4-10.4); MONOCYTES # (AUTO) 2.2 X10'3 (0-0.9); MONOCYTES % (AUTO) 26.8 % (2-12); NEUTROPHILS # (AUTO) 4.2 X10'3 (1.8-7.7); NEUTROPHILS % (AUTO) 50.4 % (42-75); PLATELET COUNT 80 X10'3 (140-440); RED BLOOD COUNT 4.03 X10'6 (4.20-5.60); RED CELL DISTRIBUTION WIDTH 15.4 % (11.5-14.5); WHITE BLOOD COUNT 8.4 X10'3 (4.5-11.0)
[2023-04-17] MEDS ORDERED: potassium Cl 40MEQ/1/2NS 520ml 520 ML IV PRN (11:25)
[2023-04-17] MEDS ORDERED: magnesium 4gm in 100ml NS 100 ML IV PRN (11:25)
[2023-04-17] MEDS ORDERED: magnesium 2GM in 50ml NS 50 ML IV PRN (11:25)
[2023-04-17 11:39] LABS: TOTAL CELLS COUNTED 100
[2023-04-17 11:40] LABS: LARGE PLATELETS FEW; PLATELET ESTIMATE DECREASED
[2023-04-17] MEDS: potassium Cl 20 mEq SR tablet PO PRN ×3 (12:39→22:56)
[2023-04-17 20:49] LABS: ALANINE AMINOTRANSFERASE 58 U/L (12-78); ALBUMIN 2.3 G/DL (3.4-5.0); ALBUMIN/GLOBULIN RATIO 0.4 (1.1-1.5); ALKALINE PHOSPHATASE 54 IU/L (46-116); ANION GAP 7 (8-16); ASPARTATE AMINO TRANSFERASE 103 U/L (10-37); BILIRUBIN,TOTAL 1.1 MG/DL (0.1-1.0); BLOOD UREA NITROGEN 38 MG/DL (7-18); BUN/CREATININE RATIO 35.2 (10.0-20.0); CALCIUM 8.9 MG/DL (8.5-10.1); CHLORIDE 103 MMOL/L (99-107); CREATININE 1.08 MG/DL (0.40-0.90); MAGNESIUM 1.8 MG/DL (1.5-2.4); PHOSPHORUS 3.7 MG/DL (2.3-4.5); SODIUM 138 MMOL/L (135-145); TOTAL CARBON DIOXIDE 28.5 MMOL/L (24-32); TOTAL PROTEIN 7.6 G/DL (6.4-8.2); eGFR 51 ML/MIN
[2023-04-17 21:05] LABS: GLUCOSE 108 MG/DL (70-104)
[2023-04-18] VITALS (11 sets, daily range): BP systolic 112–154; BP diastolic 42–78
[2023-04-18] MEDS: potassium Cl 20 mEq SR tablet PO PRN ×2 (03:45→20:59)
[2023-04-18 04:51] LABS: BASOPHILS % (AUTO) 0.2 % (0-1); EOSINOPHILS % (AUTO) 0.5 % (0-6); HEMATOCRIT 36.5 % (35.0-45.0); HEMOGLOBIN 12.2 g/dl (12.0-16.0); LYMPHOCYTES # (AUTO) 1.7 X10'3 (1.1-4.8); LYMPHOCYTES % (AUTO) 23.2 % (21-51); MEAN CORPUSCULAR HEMOGLOBIN 29.9 PG (27.0-31.0); MEAN CORPUSCULAR HGB CONC 33.3 g/dL (33.0-36.5); MEAN CORPUSCULAR VOLUME 89.8 FL (78-98); MEAN PLATELET VOLUME 9.1 FL (7.4-10.4); MONOCYTES # (AUTO) 2.2 X10'3 (0-0.9); NEUTROPHILS # (AUTO) 3.4 X10'3 (1.8-7.7); NEUTROPHILS % (AUTO) 46.1 % (42-75); PLATELET COUNT 75 X10'3 (140-440); RED BLOOD COUNT 4.07 X10'6 (4.20-5.60); RED CELL DISTRIBUTION WIDTH 15.4 % (11.5-14.5); WHITE BLOOD COUNT 7.4 X10'3 (4.5-11.0)
[2023-04-18 05:01] LABS: APTT 29 SECONDS (22-32)
[2023-04-18 05:03] LABS: ALANINE AMINOTRANSFERASE 58 U/L (12-78); ALBUMIN 2.4 G/DL (3.4-5.0); ALBUMIN/GLOBULIN RATIO 0.5 (1.1-1.5); ALKALINE PHOSPHATASE 56 IU/L (46-116); ANION GAP 7 (8-16); ASPARTATE AMINO TRANSFERASE 103 U/L (10-37); BILIRUBIN,TOTAL 1.1 MG/DL (0.1-1.0); BLOOD UREA NITROGEN 31 MG/DL (7-18); BUN/CREATININE RATIO 30.7 (10.0-20.0); CHLORIDE 104 MMOL/L (99-107); CREATININE 1.01 MG/DL (0.40-0.90); MAGNESIUM 1.5 MG/DL (1.5-2.4); PHOSPHORUS 3.4 MG/DL (2.3-4.5); POTASSIUM 3.5 MMOL/L (3.5-5.1); SODIUM 139 MMOL/L (135-145); TOTAL CARBON DIOXIDE 28.5 MMOL/L (24-32); TOTAL PROTEIN 7.5 G/DL (6.4-8.2); eGFR 55 ML/MIN
[2023-04-18 05:12] LABS: GLUCOSE 86 MG/DL (70-104)
[2023-04-18 05:53] LABS: PLATELET ESTIMATE DECREASED; TOTAL CELLS COUNTED 100
--- NOTE | 2023-04-18 07:35 | NUR ---
pt arrived to room 3017b via wheelchair. Daja groves received report from estelle in icu and assumed care of patient. vss pt is sleepy but ox4. pt was a two person assist from wheelchair to bed. physical therapy is ordered for her. oriented patient to room, bed down low with call light within reach of patient
[2023-04-18] MEDS: K and/or MAG REPLACEMENT MC SCH ×2 (08:00→20:00)
[2023-04-18] MEDS: docusate sod 100mg capsule PO SCH ×2 (09:33→20:58)
[2023-04-18] MEDS: amiodarone 200mg tablet OGT SCH (09:34)
[2023-04-18] MEDS: aspirin 325mg tablet PO SCH (09:34)
[2023-04-18] MEDS: apixaban 5mg tablet PO SCH ×2 (09:34→20:58)
[2023-04-18] MEDS: pantoprazole 40mg Tablet.DR PO SCH (09:34)
--- NOTE | 2023-04-18 10:27 | NUR ---
DISCUSSED POC WITH PATIENT, DR CEDEÑO AND REBECCA PROPERTY INSURANCE CLAIMS EXAMINER. PT IS SLEEPY BUT OX4. RESTRAINTS ARE DC'D AND PT IS USING HER CALL LIGHT APPROPRIATELY. VSS AND PHYSICAL THERAPY IS HERE TO WORK WITH PATIENT.
[2023-04-18] MEDS ORDERED: ondansetron 4mg rapidly disintigrating tab PO PRN (11:20)
--- NOTE | 2023-04-18 17:53 | NUR ---
Pt AOX3, VSS on RA. Pt denies pain. Pt slept most of the shift. Pt cooperative with medication administration. Pt had call light within reach, BLL with bed alarm on. Pt on Tele A-Fib, A-Flutter rate controlled, denies CP and SOB. Pt in NAD.
--- NOTE | 2023-04-18 18:20 | NUR ---
Patient in room PCU 3017. I have received report from Daja and had the opportunity to ask questions and assume patient care.
[2023-04-18] MEDS ORDERED: magnesium 2GM in 50ml NS 50 ML IV ONE (18:45)
[2023-04-18] MEDS: diltiazem 30mg tablet PO SCH (20:58)
[2023-04-18] MEDS: magnesium Cl slow-release 64mg tablet PO PRN (20:59)
--- NOTE | 2023-04-18 23:05 | NUR ---
Carlson Catheter d/c'd at 2300
[2023-04-19] MEDS: diltiazem 30mg tablet PO SCH ×4 (02:00→19:20)
--- NOTE | 2023-04-19 02:56 | NUR ---
Pt refused 0200 vital signs
--- NOTE | 2023-04-19 06:29 | NUR ---
Problems reprioritized. Patient report given, questions answered & plan of care reviewed with
[2023-04-19 07:01] LABS: BASOPHILS % (AUTO) 0.3 % (0-1); EOSINOPHILS % (AUTO) 0.5 % (0-6); HEMATOCRIT 37.2 % (35.0-45.0); HEMOGLOBIN 13.1 g/dl (12.0-16.0); LYMPHOCYTES # (AUTO) 1.8 X10'3 (1.1-4.8); LYMPHOCYTES % (AUTO) 27.8 % (21-51); MEAN CORPUSCULAR HGB CONC 35.3 g/dL (33.0-36.5); MEAN CORPUSCULAR VOLUME 87.9 FL (78-98); MEAN PLATELET VOLUME 8.9 FL (7.4-10.4); MONOCYTES # (AUTO) 1.8 X10'3 (0-0.9); NEUTROPHILS # (AUTO) 2.8 X10'3 (1.8-7.7); NEUTROPHILS % (AUTO) 43.4 % (42-75); PLATELET COUNT 78 X10'3 (140-440); RED BLOOD COUNT 4.23 X10'6 (4.20-5.60); RED CELL DISTRIBUTION WIDTH 15.2 % (11.5-14.5); WHITE BLOOD COUNT 6.4 X10'3 (4.5-11.0)
[2023-04-19 07:03] LABS: APTT 29 SECONDS (22-32)
[2023-04-19 07:25] LABS: ALANINE AMINOTRANSFERASE 66 U/L (12-78); ALBUMIN 2.4 G/DL (3.4-5.0); ALBUMIN/GLOBULIN RATIO 0.5 (1.1-1.5); ALKALINE PHOSPHATASE 58 IU/L (46-116); ANION GAP 9 (8-16); ASPARTATE AMINO TRANSFERASE 91 U/L (10-37); BILIRUBIN,TOTAL 1.2 MG/DL (0.1-1.0); BLOOD UREA NITROGEN 30 MG/DL (7-18); BUN/CREATININE RATIO 32.3 (10.0-20.0); CALCIUM 8.9 MG/DL (8.5-10.1); CHLORIDE 103 MMOL/L (99-107); CREATININE 0.93 MG/DL (0.40-0.90); MAGNESIUM 1.7 MG/DL (1.5-2.4); PHOSPHORUS 3.8 MG/DL (2.3-4.5); POTASSIUM 3.4 MMOL/L (3.5-5.1); PREALBUMIN 14.4 MG/DL (19-36); SODIUM 138 MMOL/L (135-145); TOTAL CARBON DIOXIDE 26.2 MMOL/L (24-32); TOTAL PROTEIN 7.5 G/DL (6.4-8.2); eGFR 60 ML/MIN
[2023-04-19] MEDS: pantoprazole 40mg Tablet.DR PO SCH (07:30)
[2023-04-19 07:32] LABS: GLUCOSE 92 MG/DL (70-104)
[2023-04-19 07:37] VITALS: BP 122/48
[2023-04-19] MEDS: K and/or MAG REPLACEMENT MC SCH ×2 (08:00→20:00)
[2023-04-19] MEDS: docusate sod 100mg capsule PO SCH ×2 (08:54→19:17)
[2023-04-19] MEDS: apixaban 5mg tablet PO SCH ×2 (08:54→19:19)
[2023-04-19] MEDS: levoFLOXACIN-Levaquin 750MG/D5 150 ML IV SCH (08:56)
--- NOTE | 2023-04-19 09:33 | NUR ---
Reassessment: Pt has been eating well, documented with average 63% PO intake of meals while on pureed diet however up to 100% PO intake once texture was liberalized to MM5 per ST recs meeting estimated nutrient needs. LBM still documented to be 6/24 despite receiving routine bowel care and no GI symptoms per EMR. D/w dietary to send power pudding and prune juice with next meal to assist with a BM. PRN bowel care also available. Will continue to follow and monitor need for further nutrition intervention. Recommendations: 1) Continue MM5 diet with thin liquids per ST recs 2) Monitor need for ONS/additional protein 3) Routine and PRN bowel care; Per EMR LBM 6/24 though questionable 4) Daily scaled weights per rx Addendum: 04/19/23 at [address] Amended: Links added.
[2023-04-19 11:00] VITALS: BP 113/32
[2023-04-19 15:00] VITALS: BP 125/56
--- NOTE | 2023-04-19 18:21 | NUR ---
Patient in room PCU 3017. I have received report from Elvis and had the opportunity to ask questions and assume patient care.
[2023-04-19] MEDS: potassium Cl 20 mEq SR tablet PO PRN (19:18)
[2023-04-19] MEDS: magnesium Cl slow-release 64mg tablet PO PRN (19:19)
[2023-04-19] MEDS: acetaminophen 325mg/10.15ml oral unit dose solution OGT PRN (19:22)
[2023-04-19 20:50] VITALS: BP 141/63
[2023-04-20] MEDS: acetaminophen 325mg/10.15ml oral unit dose solution OGT PRN (02:23)
[2023-04-20] MEDS: diltiazem 30mg tablet PO SCH ×3 (02:23→12:56)
[2023-04-20 02:30] VITALS: BP 119/69
--- NOTE | 2023-04-20 06:11 | NUR ---
Problems reprioritized. Patient report given, questions answered & plan of care reviewed with
[2023-04-20] MEDS: apixaban 5mg tablet PO SCH (07:29)
[2023-04-20] MEDS: pantoprazole 40mg Tablet.DR PO SCH (07:29)
[2023-04-20] MEDS: K and/or MAG REPLACEMENT MC SCH (07:29)
[2023-04-20] MEDS: docusate sod 100mg capsule PO SCH (07:29)
[2023-04-20 07:54] LABS: BASOPHILS % (AUTO) 0.3 % (0-1); EOSINOPHILS % (AUTO) 0.6 % (0-6); HEMATOCRIT 35.8 % (35.0-45.0); HEMOGLOBIN 12.5 g/dl (12.0-16.0); LYMPHOCYTES # (AUTO) 1.5 X10'3 (1.1-4.8); LYMPHOCYTES % (AUTO) 30.1 % (21-51); MEAN CORPUSCULAR HEMOGLOBIN 30.5 PG (27.0-31.0); MEAN CORPUSCULAR VOLUME 87.1 FL (78-98); MEAN PLATELET VOLUME 8.6 FL (7.4-10.4); MONOCYTES # (AUTO) 1.5 X10'3 (0-0.9); MONOCYTES % (AUTO) 29.5 % (2-12); NEUTROPHILS % (AUTO) 39.5 % (42-75); PLATELET COUNT 82 X10'3 (140-440); RED BLOOD COUNT 4.11 X10'6 (4.20-5.60); RED CELL DISTRIBUTION WIDTH 14.8 % (11.5-14.5)
[2023-04-20 07:55] LABS: APTT 30 SECONDS (22-32)
[2023-04-20 07:58] LABS: ALANINE AMINOTRANSFERASE 68 U/L (12-78); ALBUMIN 2.4 G/DL (3.4-5.0); ALBUMIN/GLOBULIN RATIO 0.5 (1.1-1.5); ALKALINE PHOSPHATASE 56 IU/L (46-116); ANION GAP 6 (8-16); ASPARTATE AMINO TRANSFERASE 85 U/L (10-37); BILIRUBIN,TOTAL 1.1 MG/DL (0.1-1.0); BLOOD UREA NITROGEN 25 MG/DL (7-18); BUN/CREATININE RATIO 26.6 (10.0-20.0); CALCIUM 8.8 MG/DL (8.5-10.1); CHLORIDE 103 MMOL/L (99-107); CREATININE 0.94 MG/DL (0.40-0.90); MAGNESIUM 1.5 MG/DL (1.5-2.4); PHOSPHORUS 3.7 MG/DL (2.3-4.5); POTASSIUM 3.3 MMOL/L (3.5-5.1); SODIUM 136 MMOL/L (135-145); TOTAL CARBON DIOXIDE 27.1 MMOL/L (24-32); TOTAL PROTEIN 7.3 G/DL (6.4-8.2); eGFR 59 ML/MIN
[2023-04-20 08:36] LABS: GLUCOSE 99 MG/DL (70-104)
[2023-04-20] MEDS: potassium Cl 20 mEq SR tablet PO PRN (09:58)
[2023-04-20] MEDS ORDERED: PANT-47 PO (10:18)
[2023-04-20] MEDS ORDERED: APIX5TAB3 PO (10:26)
[2023-04-20] MEDS ORDERED: METO-395 PO (10:26)
[2023-04-20] MEDS ORDERED: IPRA3AMP9 NEB (10:26)
[2023-04-20] MEDS ORDERED: LEVO-65 PO (10:51)
== END 2023-04-20 13:39 | disposition home or self-care (01) | DRG 720 ==
LOC: ER 05:37 → ED HOLD 10:06 → ICU 2S 12:48 → PCU 3S 04-18 07:32
PROVIDERS: ADMIT Internal Medicine Critical Care Medicine; ATTEND Internal Medicine Critical Care Medicine
PROC: 5A1955Z Respiratory Ventilation, Greater than 96 Consecutive Hours (ICD-10-PCS; principal; 2023-04-12)
PROC: 0BH17EZ Insertion of Endotracheal Airway into Trachea, Via Natural or Artificial Opening (ICD-10-PCS; 2023-04-12)
PROC: 5A09357 Assistance with Respiratory Ventilation, Less than 24 Consecutive Hours, Continuous Positive Airway Pressure (ICD-10-PCS; 2023-04-12)
PROC: 02HV33Z Insertion of Infusion Device into Superior Vena Cava, Percutaneous Approach (ICD-10-PCS; 2023-04-12)
PROC: B548ZZA Ultrasonography of Superior Vena Cava, Guidance (ICD-10-PCS; 2023-04-12)
DX: A41.89 Other specified sepsis (principal); R65.21 Severe sepsis with septic shock; J15.211 Pneumonia due to Methicillin susceptible Staphylococcus aureus; J96.01 Acute respiratory failure with hypoxia; D69.6 Thrombocytopenia, unspecified; E87.3 Alkalosis; E87.0 Hyperosmolality and hypernatremia; J96.02 Acute respiratory failure with hypercapnia; R34 Anuria and oliguria; I50.1 Left ventricular failure, unspecified; Z20.822 Contact with and (suspected) exposure to COVID-19; I95.9 Hypotension, unspecified; I11.0 Hypertensive heart disease with heart failure; N17.9 Acute kidney failure, unspecified; B95.61 Methicillin susceptible Staphylococcus aureus infection as the cause of diseases classified elsewhere; I49.3 Ventricular premature depolarization; I34.0 Nonrheumatic mitral (valve) insufficiency; K21.9 Gastro-esophageal reflux disease without esophagitis; M54.9 Dorsalgia, unspecified; R74.01 Elevation of levels of liver transaminase levels; E87.6 Hypokalemia; G89.29 Other chronic pain; F41.9 Anxiety disorder, unspecified; I25.10 Atherosclerotic heart disease of native coronary artery without angina pectoris; I48.0 Paroxysmal atrial fibrillation; Z86.16 Personal history of COVID-19; Z87.891 Personal history of nicotine dependence; Z88.5 Allergy status to narcotic agent; Z79.899 Other long term (current) drug therapy
CPT/HCPCS: 36415; 36600; 71045; 80053; 81003; 82803; 82948; 83605; 83735; 83880; 84100; 84132; 84134; 84145; 84439; 84443; 84484; 85007; 85018; 85025; 85610; 85730; 86022; 87040; 87070; 87077; 87081; 87186; 87811; 92508; 92616; 93005; 93306; 94002; 94003; 94760; 94799; 97110; 97116; 97161; 97530; 99285; A4333; A5200; A6213; A6258; A6449; A7015; A9900; C9113; G0378; J0131; J0282; J0456; J0696; J1120; J1650; J1940; J1956; J2405; J2704; J2930; J3010; J3370; J3475; J3480; J3490; J7030; J7040; J7050

== ENCOUNTER 2024-02-11 21:56 | Emergency (ER) | payer MEDICAID ==
[~2024-02-11] VITALS: Ht 167.6 cm; Wt 103.8 kg
[~2024-02-11 21:56] MED LIST changes: +APIX5TAB3 PO; +ASPI-1174 PO; +IPRA3AMP9 NEB; +METO-395 PO; -METO50TA16 PO; +PANT-47 PO
[2024-02-11 22:38] VITALS: TEMP 99.3
[2024-02-11 23:48] LABS: HEMOGLOBIN 13.6 g/dl (12.0-16.0); LYMPHOCYTES # (AUTO) 1.5 X10'3 (1.1-4.8); MEAN CORPUSCULAR HEMOGLOBIN 30.5 PG (27.0-31.0); MONOCYTES # (AUTO) 2.4 X10'3 (0-0.9); RED CELL DISTRIBUTION WIDTH 14.8 % (11.5-14.5)
[2024-02-11 23:50] LABS: BASOPHILS % (AUTO) 0.3 % (0-1); EOSINOPHILS % (AUTO) 0.3 % (0-6); HEMATOCRIT 39.1 % (35.0-45.0); LYMPHOCYTES % (AUTO) 29.4 % (21-51); MEAN CORPUSCULAR HGB CONC 34.7 g/dL (33.0-36.5); MEAN CORPUSCULAR VOLUME 87.7 FL (78-98); MEAN PLATELET VOLUME 8.3 FL (7.4-10.4); MONOCYTES % (AUTO) 45.8 % (2-12); NEUTROPHILS # (AUTO) 1.3 X10'3 (1.8-7.7); NEUTROPHILS % (AUTO) 24.2 % (42-75); PLATELET COUNT 78 X10'3 (140-440); RED BLOOD COUNT 4.46 X10'6 (4.20-5.60); WHITE BLOOD COUNT 5.2 X10'3 (4.5-11.0)
[2024-02-12] MEDS: metoprolol tartrate 1mg/ml inj IV ONE (00:07)
[2024-02-12] MEDS: normal saline 1000ml 1,000 ML IV ONE (00:07)
[2024-02-12 00:12] LABS: ALBUMIN 2.7 G/DL (3.4-5.0); ANION GAP 7 (8-16); BLOOD UREA NITROGEN 14 MG/DL (7-18); BUN/CREATININE RATIO 16.3 (10.0-20.0); CHLORIDE 104 MMOL/L (99-107); CREATININE 0.86 MG/DL (0.40-0.90); POTASSIUM 3.5 MMOL/L (3.5-5.1); PRO BRAIN NATRIURETIC PEPTIDE 1117 PG/ML (0-125); SODIUM 137 MMOL/L (135-145); TOTAL CARBON DIOXIDE 26.1 MMOL/L (24-32); eCRCL 59 ML/MIN; eGFR 66 ML/MIN
[2024-02-12 00:18] LABS: GLUCOSE 98 MG/DL (70-104)
[2024-02-12] MEDS ORDERED: AZIT-164 PO (00:29)
[2024-02-12 00:34] LABS: PLATELET ESTIMATE DECREASED; TOTAL CELLS COUNTED 100
[2024-02-12 01:00] VITALS: BP 168/119; PULSE 107; O2SAT 96
[2024-02-12] MEDS: apixaban 5mg tablet PO ONE (01:11)
[2024-02-12] MEDS: metoprolol succinate 25mg (24-HOUR) SR. Tablet PO ONE ×2 (01:11)
[2024-02-12] MEDS ORDERED: BENZ-38 PO (01:19)
[2024-02-12 01:24] VITALS: RESP 16
== END 2024-02-12 01:27 | disposition home or self-care (01) ==
LOC: ER 21:57
DX: J06.9 Acute upper respiratory infection, unspecified (principal); I10 Essential (primary) hypertension; K21.9 Gastro-esophageal reflux disease without esophagitis; Z88.5 Allergy status to narcotic agent; Z79.899 Other long term (current) drug therapy; Z79.82 Long term (current) use of aspirin
CPT/HCPCS: 36415; 71045; 80048; 83880; 84145; 84484; 85007; 85025; 93005; 96361; 96374; 99285; J3490; J7030

== ENCOUNTER 2024-02-24 12:41 | Emergency (ER) | payer MEDICAID ==
[~2024-02-24] VITALS: Ht 167.6 cm; Wt 95.5 kg
[~2024-02-24 12:41] MED LIST changes: +AZIT-164 PO
[2024-02-24 13:33] LABS: BASOPHILS % (AUTO) 0.1 % (0-1); EOSINOPHILS % (AUTO) 0.1 % (0-6); HEMOGLOBIN 12.6 g/dl (12.0-16.0); LYMPHOCYTES # (AUTO) 1.4 X10'3 (1.1-4.8); LYMPHOCYTES % (AUTO) 16.6 % (21-51); MEAN CORPUSCULAR HEMOGLOBIN 30.8 PG (27.0-31.0); MEAN CORPUSCULAR HGB CONC 34.9 g/dL (33.0-36.5); MEAN CORPUSCULAR VOLUME 88.3 FL (78-98); MEAN PLATELET VOLUME 8.7 FL (7.4-10.4); MONOCYTES # (AUTO) 2.2 X10'3 (0-0.9); MONOCYTES % (AUTO) 26.9 % (2-12); NEUTROPHILS # (AUTO) 4.7 X10'3 (1.8-7.7); NEUTROPHILS % (AUTO) 56.3 % (42-75); PLATELET COUNT 92 X10'3 (140-440); RED BLOOD COUNT 4.08 X10'6 (4.20-5.60); RED CELL DISTRIBUTION WIDTH 14.7 % (11.5-14.5); WHITE BLOOD COUNT 8.3 X10'3 (4.5-11.0)
[2024-02-24] MEDS: diltiazem 5mg/ml 5ml inj. IV ONE (13:35)
[2024-02-24 13:39] LABS: ALBUMIN 2.9 G/DL (3.4-5.0); ANION GAP 12 (8-16); BLOOD UREA NITROGEN 10 MG/DL (7-18); BUN/CREATININE RATIO 10.5 (10.0-20.0); CHLORIDE 102 MMOL/L (99-107); CREATININE 0.95 MG/DL (0.40-0.90); POTASSIUM 3.3 MMOL/L (3.5-5.1); PRO BRAIN NATRIURETIC PEPTIDE 4294 PG/ML (0-125); SODIUM 137 MMOL/L (135-145); TOTAL CARBON DIOXIDE 23.4 MMOL/L (24-32); eCRCL 53 ML/MIN; eGFR 58 ML/MIN
[2024-02-24 13:43] LABS: GLUCOSE 103 MG/DL (70-104)
[2024-02-24] MEDS: normal saline 1000ml 1,000 ML IV ONE (13:56)
[2024-02-24] MEDS: azithromycin/NS 500mg/250ml 250 ML IV ONE (13:58)
[2024-02-24 14:30] LABS: TOTAL CELLS COUNTED 100
[2024-02-24 14:31] LABS: PLATELET ESTIMATE DECREASED; STOMATOCYTES FEW
[2024-02-24] MEDS: normal saline 500ml IV soln 500 ML IV SCH (15:45)
[2024-02-24 16:08] VITALS: BP 169/94; PULSE 109; RESP 25; TEMP 99.6; O2SAT 96
[2024-02-24 17:27] LABS: BILIRUBIN,URINE NEGATIVE (Neg); CLARITY,URINE SLIGHTLY CLOUDY (Clear); COLOR,URINE YELLOW (Yellow); GLUCOSE, URINE NEGATIVE (Neg); KETONES,URINE NEGATIVE (Neg); LEUKOCYTE ESTERASE ,URINE NEGATIVE (Neg); NITRITES, URINE NEGATIVE (Neg); OCCULT BLOOD,URINE MODERATE (Neg); PROTEIN,URINE NEGATIVE (Neg)
[2024-02-24 17:29] LABS: UA COLLECTION TYPE VOIDED
[2024-02-24 17:33] LABS: MUCUS STRANDS FEW /LPF (Neg); SQUAMOUS EPITHELIAL CELL,UR FEW /LPF (FEW)
[2024-02-24 17:35] LABS: RBC,URINE 20-50 /HPF (0-2); WBC,URINE 0-4 /HPF (0-4)
[2024-02-24 17:36] LABS: BACTERIA,URINE FEW /HPF (Neg)
[2024-02-24] MEDS ORDERED: CEPH250T PO (17:46)
[2024-02-25] MEDS ORDERED: CefTRIAXone 2gm/D5W 50ml BAG 50 ML IV ONE (08:00)
== END 2024-02-24 18:15 | disposition left against medical advice (07) ==
LOC: ER 12:41
DX: I48.20 Chronic atrial fibrillation, unspecified (principal); R50.9 Fever, unspecified; I10 Essential (primary) hypertension; K21.9 Gastro-esophageal reflux disease without esophagitis; G89.29 Other chronic pain; R06.03 Acute respiratory distress; Z88.8 Allergy status to other drugs, medicaments and biological substances
CPT/HCPCS: 36415; 71045; 74176; 80048; 81001; 83605; 83880; 84145; 84484; 85007; 85025; 87040; 87077; 87502; 87503; 93005; 96361; 96365; 96366; 96375; 99285; J0456; J3490; J7030; J7040

== ENCOUNTER 2024-07-09 22:21 | Emergency (ER) | payer MEDICAID ==
[~2024-07-09] VITALS: Ht 167.6 cm; Wt 100.0 kg
[~2024-07-09 22:21] MED LIST changes: -AZIT-164 PO
[2024-07-09 22:35] VITALS: TEMP 98
[2024-07-09 23:03] LABS: HEMOGLOBIN 12.1 g/dl (12.0-16.0); WHITE BLOOD COUNT 4.6 X10'3 (4.5-11.0)
[2024-07-09 23:05] LABS: BASOPHILS % (AUTO) 0.3 % (0-1); EOSINOPHILS % (AUTO) 0.5 % (0-6); HEMATOCRIT 35.8 % (35.0-45.0); LYMPHOCYTES # (AUTO) 1.4 X10'3 (1.1-4.8); LYMPHOCYTES % (AUTO) 31.2 % (21-51); MEAN CORPUSCULAR HEMOGLOBIN 30.2 PG (27.0-31.0); MEAN CORPUSCULAR HGB CONC 33.8 g/dL (33.0-36.5); MEAN CORPUSCULAR VOLUME 89.4 FL (78-98); MEAN PLATELET VOLUME 8.4 FL (7.4-10.4); MONOCYTES # (AUTO) 1.2 X10'3 (0-0.9); MONOCYTES % (AUTO) 25.4 % (2-12); NEUTROPHILS % (AUTO) 42.6 % (42-75); PLATELET COUNT 92 X10'3 (140-440); RED CELL DISTRIBUTION WIDTH 15.1 % (11.5-14.5)
[2024-07-09 23:24] LABS: ALBUMIN 2.6 G/DL (3.4-5.0); ANION GAP 8 (8-16); BLOOD UREA NITROGEN 10 MG/DL (7-18); BUN/CREATININE RATIO 12.3 (10.0-20.0); CALCIUM 8.6 MG/DL (8.5-10.1); CHLORIDE 106 MMOL/L (99-107); CREATININE 0.81 MG/DL (0.40-0.90); POTASSIUM 3.2 MMOL/L (3.5-5.1); PRO BRAIN NATRIURETIC PEPTIDE 797 PG/ML (0-125); SODIUM 139 MMOL/L (135-145); TOTAL CARBON DIOXIDE 24.7 MMOL/L (24-32); eCRCL 62 ML/MIN; eGFR 70 ML/MIN
[2024-07-09 23:40] LABS: PLATELET ESTIMATE DECREASED; TOTAL CELLS COUNTED 100
[2024-07-09 23:46] LABS: GLUCOSE 197 MG/DL (70-104)
[2024-07-10 00:54] LABS: MONOTEST NEGATIVE (Neg)
[2024-07-10] MEDS ORDERED: AZIT250T3 PO (03:52)
[2024-07-10] MEDS ORDERED: PRED20TA PO (03:52)
[2024-07-10] MEDS ORDERED: metoprolol tartrate 50mg tablet PO ONE (03:55)
[2024-07-10] MEDS: metoprolol tartrate 25mg tablet PO ONE (04:12)
[2024-07-10 04:19] VITALS: BP 158/89; PULSE 114; RESP 18; O2SAT 96
== END 2024-07-10 04:23 | disposition home or self-care (01) ==
LOC: ER 22:21
DX: J06.9 Acute upper respiratory infection, unspecified (principal); Z20.822 Contact with and (suspected) exposure to COVID-19; I48.91 Unspecified atrial fibrillation; I10 Essential (primary) hypertension; K21.9 Gastro-esophageal reflux disease without esophagitis; Z88.5 Allergy status to narcotic agent; Z79.899 Other long term (current) drug therapy; Z79.82 Long term (current) use of aspirin
CPT/HCPCS: 36415; 71045; 80048; 83880; 84145; 84484; 85007; 85025; 86308; 87811; 93005; 99285; A4615

== ENCOUNTER 2024-07-28 14:28 | Inpatient (IN) | payer MEDICAID ==
[~2024-07-28] VITALS: Ht 167.6 cm; Wt 112.8 kg
[2024-07-28] VITALS (7 sets, daily range): BP systolic 134–166; BP diastolic 76–92; PULSE 87–103; RESP 18–20; TEMP 97–97.3; O2SAT 93–94
[2024-07-28 15:00] LABS: ALANINE AMINOTRANSFERASE 46 U/L (12-78); ALBUMIN 2.6 G/DL (3.4-5.0); ALBUMIN/GLOBULIN RATIO 0.5 (1.1-1.5); ALKALINE PHOSPHATASE 69 IU/L (46-116); ANION GAP 7 (8-16); ASPARTATE AMINO TRANSFERASE 69 U/L (10-37); BLOOD UREA NITROGEN 12 MG/DL (7-18); CALCIUM 8.4 MG/DL (8.5-10.1); CHLORIDE 105 MMOL/L (99-107); CREATININE 1.09 MG/DL (0.40-0.90); POTASSIUM 3.7 MMOL/L (3.5-5.1); SODIUM 138 MMOL/L (135-145); TOTAL CARBON DIOXIDE 26.3 MMOL/L (24-32); TOTAL PROTEIN 7.4 G/DL (6.4-8.2); eCRCL 46 ML/MIN; eGFR 50 ML/MIN
[2024-07-28 15:08] LABS: BASOPHILS % (AUTO) 0.2 % (0-1); EOSINOPHILS % (AUTO) 0.3 % (0-6); HEMATOCRIT 34.5 % (35.0-45.0); HEMOGLOBIN 11.6 g/dl (12.0-16.0); LYMPHOCYTES # (AUTO) 1.3 X10'3 (1.1-4.8); LYMPHOCYTES % (AUTO) 25.7 % (21-51); MEAN CORPUSCULAR HEMOGLOBIN 29.7 PG (27.0-31.0); MEAN CORPUSCULAR HGB CONC 33.8 g/dL (33.0-36.5); MEAN CORPUSCULAR VOLUME 87.9 FL (78-98); MONOCYTES # (AUTO) 1.7 X10'3 (0-0.9); MONOCYTES % (AUTO) 32.6 % (2-12); NEUTROPHILS # (AUTO) 2.1 X10'3 (1.8-7.7); NEUTROPHILS % (AUTO) 41.2 % (42-75); PLATELET COUNT 80 X10'3 (140-440); PRO BRAIN NATRIURETIC PEPTIDE 1727 PG/ML (0-125); RED BLOOD COUNT 3.92 X10'6 (4.20-5.60); WHITE BLOOD COUNT 5.2 X10'3 (4.5-11.0)
[2024-07-28 15:16] LABS: GLUCOSE 130 MG/DL (70-104)
[2024-07-28 15:17] LABS: LARGE PLATELETS FEW; PLATELET ESTIMATE DECREASED; TOTAL CELLS COUNTED 100
[2024-07-28] MEDS ORDERED: LOSA-415 PO (16:10)
[2024-07-28] MEDS ORDERED: LEVO25TA7 PO (16:10)
[2024-07-28] MEDS: normal saline 500ml IV soln 500 ML IV ONE (16:51)
[2024-07-28] MEDS: aspirin 81mg tab.chew PO ONE (16:53)
[2024-07-28] MEDS: diltiazem 5mg/ml 5ml inj. IV ONE (16:55)
[2024-07-28] MEDS: CefTRIAXone 2gm/D5W 50ml BAG 50 ML IV ONE (16:57)
[2024-07-28] MEDS: diltiazem-NS 100mg/100ml 100 ML IV SCH (17:06)
[2024-07-28] MEDS ORDERED: magnesium Cl slow-release 64mg tablet PO PRN (17:15)
[2024-07-28] MEDS ORDERED: acetaminophen 325mg tablet PO PRN (17:15)
[2024-07-28] MEDS ORDERED: potassium Cl 20 mEq SR tablet PO PRN (17:15)
[2024-07-28] MEDS ORDERED: ondansetron/PF 4mg/2ml inj IV PRN (17:15)
[2024-07-28] MEDS ORDERED: mag hydrox/Alum hydrox/simeth 30ml oral suspension PO PRN (17:15)
[2024-07-28] MEDS ORDERED: potassium Cl 40MEQ/1/2NS 520ml 520 ML IV PRN (17:15)
[2024-07-28] MEDS ORDERED: magnesium sulf-water 2g/50mL 50 ML IV PRN (17:15)
[2024-07-28] MEDS ORDERED: magnesium sulf-water 4G/100mL 100 ML IV PRN (17:15)
[2024-07-28] MEDS ORDERED: magnesium hydroxide 30ml (MOM) UD suspension PO PRN (17:15)
[2024-07-28 17:33] LABS: D-DIMER 1.07 MG/L FEU (0-0.50)
[2024-07-28 17:50] LABS: HEMOGLOBIN A1C 5.3 % (4.5-6.2)
[2024-07-28] MEDS ORDERED: azithromycin/NS 500mg/250ml 250 ML IV SCH (18:05)
[2024-07-28 19:25] LABS: % IRON SATURATION 26 % (11-46); IRON 86 UG/DL (49-151); TOTAL IRON BINDING CAPACITY 329 UG/DL (259-388)
[2024-07-28 19:27] LABS: APTT 31 SECONDS (22-32); INR 1.2 INR; PROTHROMBIN TIME 12.7 SECONDS (9.0-12.0)
[2024-07-28] MEDS: K and/or MAG REPLACEMENT MC SCH (20:00)
[2024-07-28] MEDS: metoprolol succinate 25mg (24-HOUR) SR. Tablet PO SCH (20:04)
[2024-07-28] MEDS: furosemide 40mg/4ml inj IV ONE (20:04)
[2024-07-28] MEDS: apixaban 5mg tablet PO SCH (20:04)
[2024-07-29] VITALS (14 sets, daily range): BP systolic 126–164; BP diastolic 75–95; PULSE 89–106; RESP 15–24; TEMP 96.2–98.9; O2SAT 90–99
[2024-07-29] MEDS: ipratropium/albuterol 3ml nebule NEB PRN (06:55)
[2024-07-29] MEDS ORDERED: CefTRIAXone/D5W-Rocephin 1gm 50 ML IV SCH (08:00)
[2024-07-29] MEDS: levoTHYROXINE 25mcg tablet PO SCH (08:18)
[2024-07-29] MEDS: pantoprazole 40mg Tablet.DR PO SCH (08:19)
[2024-07-29] MEDS: losartan 25mg tablet PO SCH (08:19)
[2024-07-29 09:26] LABS: BASOPHILS % (AUTO) 0.2 % (0-1); EOSINOPHILS % (AUTO) 0.1 % (0-6); HEMATOCRIT 34.8 % (35.0-45.0); HEMOGLOBIN 11.8 g/dl (12.0-16.0); LYMPHOCYTES # (AUTO) 1.4 X10'3 (1.1-4.8); LYMPHOCYTES % (AUTO) 24.5 % (21-51); MEAN CORPUSCULAR HEMOGLOBIN 30.1 PG (27.0-31.0); MEAN CORPUSCULAR VOLUME 88.5 FL (78-98); MEAN PLATELET VOLUME 8.6 FL (7.4-10.4); MONOCYTES # (AUTO) 1.6 X10'3 (0-0.9); MONOCYTES % (AUTO) 29.3 % (2-12); NEUTROPHILS # (AUTO) 2.6 X10'3 (1.8-7.7); NEUTROPHILS % (AUTO) 45.9 % (42-75); PLATELET COUNT 95 X10'3 (140-440); RED BLOOD COUNT 3.93 X10'6 (4.20-5.60); RED CELL DISTRIBUTION WIDTH 15.2 % (11.5-14.5); WHITE BLOOD COUNT 5.6 X10'3 (4.5-11.0)
[2024-07-29 09:41] LABS: ALANINE AMINOTRANSFERASE 50 U/L (12-78); ALBUMIN 2.6 G/DL (3.4-5.0); ALBUMIN/GLOBULIN RATIO 0.5 (1.1-1.5); ALKALINE PHOSPHATASE 65 IU/L (46-116); ANION GAP 6 (8-16); ASPARTATE AMINO TRANSFERASE 79 U/L (10-37); BILIRUBIN,TOTAL 2.4 MG/DL (0.1-1.0); BLOOD UREA NITROGEN 12 MG/DL (7-18); BUN/CREATININE RATIO 12.9 (10.0-20.0); CALCIUM 8.3 MG/DL (8.5-10.1); CHLORIDE 101 MMOL/L (99-107); CHOL/HDL RATIO 1.6 (0.00-4.99); CHOLESTEROL 125 MG/DL (0-200); CREATININE 0.93 MG/DL (0.40-0.90); HDL CHOLESTEROL 76 MG/DL (35-60); LDL CHOLESTEROL 46 MG/DL (50-100); MAGNESIUM 1.7 MG/DL (1.5-2.4); POTASSIUM 3.2 MMOL/L (3.5-5.1); SODIUM 135 MMOL/L (135-145); TOTAL CARBON DIOXIDE 28.4 MMOL/L (24-32); TOTAL PROTEIN 7.6 G/DL (6.4-8.2); TRIGLYCERIDES 60 MG/DL (20-135); eCRCL 54 ML/MIN; eGFR 60 ML/MIN
[2024-07-29 09:44] LABS: GLUCOSE 142 MG/DL (70-104)
[2024-07-29] MEDS: furosemide 20 MG/2 ML vial IV SCH ×2 (09:45→19:15)
[2024-07-29 09:55] LABS: LARGE PLATELETS FEW; PLATELET ESTIMATE DECREASED; TOTAL CELLS COUNTED 100
[2024-07-29] MEDS: potassium Cl 20 mEq SR tablet PO PRN (10:13)
[2024-07-29] MEDS: guaiFENesin ER 600mg tablet PO SCH ×2 (13:02→19:15)
[2024-07-30] VITALS (12 sets, daily range): BP systolic 118–158; BP diastolic 84–112; PULSE 84–126; RESP 12–26; TEMP 97–98.1; O2SAT 82–94
[2024-07-30 07:12] LABS: BASOPHILS % (AUTO) 0.2 % (0-1); EOSINOPHILS % (AUTO) 0.3 % (0-6); HEMATOCRIT 38.4 % (35.0-45.0); HEMOGLOBIN 12.9 g/dl (12.0-16.0); LYMPHOCYTES # (AUTO) 1.9 X10'3 (1.1-4.8); LYMPHOCYTES % (AUTO) 29.9 % (21-51); MEAN CORPUSCULAR HEMOGLOBIN 29.7 PG (27.0-31.0); MEAN CORPUSCULAR HGB CONC 33.6 g/dL (33.0-36.5); MEAN CORPUSCULAR VOLUME 88.4 FL (78-98); MEAN PLATELET VOLUME 8.4 FL (7.4-10.4); MONOCYTES # (AUTO) 1.9 X10'3 (0-0.9); MONOCYTES % (AUTO) 28.8 % (2-12); NEUTROPHILS # (AUTO) 2.6 X10'3 (1.8-7.7); NEUTROPHILS % (AUTO) 40.8 % (42-75); PLATELET COUNT 100 X10'3 (140-440); RED BLOOD COUNT 4.35 X10'6 (4.20-5.60); RED CELL DISTRIBUTION WIDTH 15.4 % (11.5-14.5); WHITE BLOOD COUNT 6.5 X10'3 (4.5-11.0)
[2024-07-30 07:38] LABS: ALANINE AMINOTRANSFERASE 51 U/L (12-78); ALBUMIN 2.6 G/DL (3.4-5.0); ALBUMIN/GLOBULIN RATIO 0.5 (1.1-1.5); ALKALINE PHOSPHATASE 64 IU/L (46-116); ANION GAP 5 (8-16); ASPARTATE AMINO TRANSFERASE 86 U/L (10-37); BILIRUBIN,TOTAL 2.9 MG/DL (0.1-1.0); BLOOD UREA NITROGEN 16 MG/DL (7-18); CALCIUM 8.6 MG/DL (8.5-10.1); CHLORIDE 103 MMOL/L (99-107); CREATININE 0.89 MG/DL (0.40-0.90); SODIUM 135 MMOL/L (135-145); TOTAL CARBON DIOXIDE 26.9 MMOL/L (24-32); TOTAL PROTEIN 8.1 G/DL (6.4-8.2); eCRCL 57 ML/MIN; eGFR 63 ML/MIN
[2024-07-30 07:42] LABS: GLUCOSE 93 MG/DL (70-104)
[2024-07-30] MEDS: losartan 25mg tablet PO SCH (08:32)
[2024-07-30] MEDS: ipratropium/albuterol 3ml nebule NEB SCH (11:21)
[2024-07-30] MEDS: methylPREDNISolone sod succ/PF 40mg inj. IV SCH (12:14)
[2024-07-30] MEDS: metoprolol tartrate 50mg tablet PO ONE (21:19)
[2024-07-31 02:00] VITALS: BP 150/80; PULSE 118; RESP 18; TEMP 97; O2SAT 92
[2024-07-31 02:10] VITALS: PULSE 76; RESP 18; O2SAT 92
[2024-07-31 07:35] LABS: BASOPHILS % (AUTO) 0.1 % (0-1); EOSINOPHILS % (AUTO) 0 % (0-6); HEMATOCRIT 37.3 % (35.0-45.0); HEMOGLOBIN 12.9 g/dl (12.0-16.0); LYMPHOCYTES # (AUTO) 1.2 X10'3 (1.1-4.8); LYMPHOCYTES % (AUTO) 12.5 % (21-51); MEAN CORPUSCULAR HEMOGLOBIN 30.2 PG (27.0-31.0); MEAN CORPUSCULAR HGB CONC 34.5 g/dL (33.0-36.5); MEAN CORPUSCULAR VOLUME 87.6 FL (78-98); MEAN PLATELET VOLUME 9.1 FL (7.4-10.4); MONOCYTES # (AUTO) 0.8 X10'3 (0-0.9); MONOCYTES % (AUTO) 9.2 % (2-12); NEUTROPHILS # (AUTO) 7.2 X10'3 (1.8-7.7); NEUTROPHILS % (AUTO) 78.2 % (42-75); PLATELET COUNT 112 X10'3 (140-440); RED BLOOD COUNT 4.26 X10'6 (4.20-5.60); RED CELL DISTRIBUTION WIDTH 15.6 % (11.5-14.5); WHITE BLOOD COUNT 9.2 X10'3 (4.5-11.0)
[2024-07-31 07:53] LABS: ALANINE AMINOTRANSFERASE 49 U/L (12-78); ALBUMIN 2.7 G/DL (3.4-5.0); ALBUMIN/GLOBULIN RATIO 0.5 (1.1-1.5); ALKALINE PHOSPHATASE 64 IU/L (46-116); ANION GAP 8 (8-16); ASPARTATE AMINO TRANSFERASE 66 U/L (10-37); BILIRUBIN,TOTAL 1.9 MG/DL (0.1-1.0); BLOOD UREA NITROGEN 25 MG/DL (7-18); BUN/CREATININE RATIO 24.8 (10.0-20.0); CHLORIDE 102 MMOL/L (99-107); CREATININE 1.01 MG/DL (0.40-0.90); MAGNESIUM 2.3 MG/DL (1.5-2.4); SODIUM 135 MMOL/L (135-145); TOTAL CARBON DIOXIDE 25.3 MMOL/L (24-32); TOTAL PROTEIN 8.4 G/DL (6.4-8.2); eCRCL 50 ML/MIN; eGFR 55 ML/MIN
[2024-07-31 07:59] LABS: GLUCOSE 127 MG/DL (70-104)
[2024-07-31 08:00] VITALS: RESP 14; O2SAT 96
[2024-07-31 09:05] VITALS: BP_SYST 155; PULSE 88
[2024-07-31] MEDS: metoprolol tartrate 50mg tablet PO SCH (09:05)
[2024-07-31] MEDS ORDERED: GUAI600T45 PO (12:48)
[2024-07-31] MEDS ORDERED: PRED10TA23 PO (12:48)
[2024-07-31] MEDS ORDERED: IPRA3AMP9 IH (12:49)
[2024-07-31] MEDS ORDERED: FURO-150 PO (12:50)
[2024-07-31] MEDS ORDERED: METO50TA16 PO (12:51)
== END 2024-07-31 17:59 | disposition home or self-care (01) | DRG 201 ==
LOC: ER 14:29 → ED HOLD 17:18 → PCU 3S 18:00
PROVIDERS: ADMIT Internal Medicine; ATTEND Internal Medicine
DX: I48.91 Unspecified atrial fibrillation (principal); N17.0 Acute kidney failure with tubular necrosis; I21.A1 Myocardial infarction type 2; I50.23 Acute on chronic systolic (congestive) heart failure; J44.1 Chronic obstructive pulmonary disease with (acute) exacerbation; Z79.01 Long term (current) use of anticoagulants; G89.29 Other chronic pain; D69.6 Thrombocytopenia, unspecified; Z20.822 Contact with and (suspected) exposure to COVID-19; M54.9 Dorsalgia, unspecified; I11.0 Hypertensive heart disease with heart failure; J98.4 Other disorders of lung; E66.01 Morbid (severe) obesity due to excess calories; D50.9 Iron deficiency anemia, unspecified; I08.1 Rheumatic disorders of both mitral and tricuspid valves; K21.9 Gastro-esophageal reflux disease without esophagitis; Z88.5 Allergy status to narcotic agent; Z79.899 Other long term (current) drug therapy; Z87.891 Personal history of nicotine dependence; Z68.41 Body mass index [BMI] 40.0-44.9, adult
CPT/HCPCS: 36415; 71045; 80053; 80061; 83036; 83540; 83550; 83605; 83735; 83880; 84145; 84443; 84484; 85007; 85025; 85379; 85610; 85730; 87040; 87081; 87811; 93005; 93306; 94640; 94760; 96365; 96367; 97116; 97161; 99285; A4615; G0378; J0696; J1940; J2919; J3490; J7040

== ENCOUNTER 2024-11-11 01:43 | Emergency (ER) | payer MEDICAID ==
[~2024-11-11] VITALS: Ht 167.6 cm; Wt 105.0 kg
[~2024-11-11 01:43] MED LIST changes: -ASPI-1174 PO; +FURO-150 PO; +GUAI600T45 PO; +IPRA3AMP9 IH; +LEVO25TA7 PO; +LOSA-415 PO; -METO-395 PO; +METO50TA16 PO
[2024-11-11 02:07] LABS: BASOPHILS % (AUTO) 0.3 % (0-1); EOSINOPHILS % (AUTO) 0.1 % (0-6); HEMOGLOBIN 12.9 g/dl (12.0-16.0); LYMPHOCYTES # (AUTO) 1.6 X10'3 (1.1-4.8); LYMPHOCYTES % (AUTO) 22.5 % (21-51); MEAN CORPUSCULAR HEMOGLOBIN 29.6 PG (27.0-31.0); MEAN CORPUSCULAR HGB CONC 33.8 g/dL (33.0-36.5); MEAN CORPUSCULAR VOLUME 87.6 FL (78-98); MEAN PLATELET VOLUME 8.8 FL (7.4-10.4); MONOCYTES # (AUTO) 1.6 X10'3 (0-0.9); NEUTROPHILS # (AUTO) 3.7 X10'3 (1.8-7.7); NEUTROPHILS % (AUTO) 54.1 % (42-75); PLATELET COUNT 93 X10'3 (140-440); RED BLOOD COUNT 4.34 X10'6 (4.20-5.60); RED CELL DISTRIBUTION WIDTH 14.9 % (11.5-14.5); WHITE BLOOD COUNT 6.9 X10'3 (4.5-11.0)
[2024-11-11] MEDS: diltiazem 5mg/ml 5ml inj. IV ONE (02:18)
[2024-11-11] MEDS: diltiazem-NS 100mg/100ml 100 ML IV SCH (02:24)
[2024-11-11] MEDS: normal saline 1000ml 1,000 ML IV ONE (02:24)
[2024-11-11 02:26] LABS: PLATELET ESTIMATE DECREASED; TOTAL CELLS COUNTED 100
[2024-11-11 02:29] LABS: ALANINE AMINOTRANSFERASE 47 U/L (12-78); ALBUMIN 3.1 G/DL (3.4-5.0); ALBUMIN/GLOBULIN RATIO 0.6 (1.1-1.5); ALKALINE PHOSPHATASE 72 IU/L (46-116); ANION GAP 6 (8-16); ASPARTATE AMINO TRANSFERASE 59 U/L (10-37); BILIRUBIN,TOTAL 2.8 MG/DL (0.1-1.0); BLOOD UREA NITROGEN 16 MG/DL (7-18); CALCIUM 8.3 MG/DL (8.5-10.1); CHLORIDE 106 MMOL/L (99-107); CREATININE 0.84 MG/DL (0.40-0.90); POTASSIUM 3.6 MMOL/L (3.5-5.1); PRO BRAIN NATRIURETIC PEPTIDE 2802 PG/ML (0-125); SODIUM 136 MMOL/L (135-145); TOTAL CARBON DIOXIDE 24.2 MMOL/L (24-32); TOTAL PROTEIN 8.4 G/DL (6.4-8.2); eCRCL 60 ML/MIN; eGFR 67 ML/MIN
[2024-11-11 02:37] LABS: GLUCOSE 94 MG/DL (70-104)
[2024-11-11] MEDS: apixaban 5mg tablet PO ONE (04:29)
[2024-11-11] MEDS: furosemide 20MG tablet PO ONE (04:29)
[2024-11-11] MEDS ORDERED: LOSA-415 PO (04:30)
[2024-11-11] MEDS ORDERED: METO50TA17 PO (04:30)
[2024-11-11] MEDS ORDERED: APIX5TAB3 PO (04:30)
[2024-11-11] MEDS ORDERED: FURO20TA4 PO (04:30)
[2024-11-11] MEDS: losartan 50mg tablet PO ONE (04:33)
[2024-11-11 04:36] VITALS: BP 184/123; PULSE 111; TEMP 98.8; O2SAT 95
[2024-11-11 04:44] VITALS: RESP 22
== END 2024-11-11 04:46 | disposition home or self-care (01) ==
LOC: ER 01:44
DX: I48.20 Chronic atrial fibrillation, unspecified (principal); R09.89 Other specified symptoms and signs involving the circulatory and respiratory systems; I10 Essential (primary) hypertension; K21.9 Gastro-esophageal reflux disease without esophagitis; Z98.890 Other specified postprocedural states; Z88.5 Allergy status to narcotic agent
CPT/HCPCS: 36415; 71045; 80053; 83880; 84484; 85007; 85025; 93005; 96365; 96366; 96376; 99285; J3490; J7030; 96375

== ENCOUNTER 2024-11-21 15:04 | Inpatient (IN) | payer MEDICARE, MEDICAID ==
[~2024-11-21] VITALS: Ht 167.6 cm; Wt 95.4 kg
[~2024-11-21 15:04] MED LIST changes: +FURO20TA4 PO; +METO50TA17 PO
[2024-11-21] MEDS: aspirin 81mg tab.chew PO ONE (15:48)
[2024-11-21] MEDS: furosemide 10 MG/1 ML 10ml inj IV ONE (15:48)
[2024-11-21 16:11] LABS: BASOPHILS % (AUTO) 0.2 % (0-1); EOSINOPHILS % (AUTO) 0.3 % (0-6); HEMATOCRIT 38.7 % (35.0-45.0); LYMPHOCYTES # (AUTO) 1.2 X10'3 (1.1-4.8); LYMPHOCYTES % (AUTO) 25.7 % (21-51); MEAN CORPUSCULAR HEMOGLOBIN 29.7 PG (27.0-31.0); MEAN CORPUSCULAR HGB CONC 33.6 g/dL (33.0-36.5); MEAN CORPUSCULAR VOLUME 88.5 FL (78-98); MONOCYTES # (AUTO) 1.3 X10'3 (0-0.9); MONOCYTES % (AUTO) 27.1 % (2-12); NEUTROPHILS # (AUTO) 2.2 X10'3 (1.8-7.7); NEUTROPHILS % (AUTO) 46.7 % (42-75); PLATELET COUNT 94 X10'3 (140-440); RED BLOOD COUNT 4.37 X10'6 (4.20-5.60); RED CELL DISTRIBUTION WIDTH 15.2 % (11.5-14.5); WHITE BLOOD COUNT 4.7 X10'3 (4.5-11.0)
[2024-11-21 16:21] LABS: ALANINE AMINOTRANSFERASE 49 U/L (12-78); ALBUMIN/GLOBULIN RATIO 0.6 (1.1-1.5); ALKALINE PHOSPHATASE 64 IU/L (46-116); ANION GAP 7 (8-16); ASPARTATE AMINO TRANSFERASE 68 U/L (10-37); BILIRUBIN,TOTAL 2.6 MG/DL (0.1-1.0); BLOOD UREA NITROGEN 21 MG/DL (7-18); BUN/CREATININE RATIO 23.9 (10.0-20.0); CALCIUM 8.6 MG/DL (8.5-10.1); CHLORIDE 106 MMOL/L (99-107); CREATININE 0.88 MG/DL (0.40-0.90); POTASSIUM 3.6 MMOL/L (3.5-5.1); SODIUM 141 MMOL/L (135-145); TOTAL CARBON DIOXIDE 27.6 MMOL/L (24-32); TOTAL PROTEIN 8.3 G/DL (6.4-8.2); eCRCL 57 ML/MIN; eGFR 64 ML/MIN
[2024-11-21 16:31] LABS: PRO BRAIN NATRIURETIC PEPTIDE 4205 PG/ML (0-125)
[2024-11-21 16:33] LABS: GLUCOSE 86 MG/DL (70-104)
[2024-11-21] MEDS ORDERED: bisacodyl 10mg suppository rectal RC PRN (18:05)
[2024-11-21] MEDS ORDERED: diphenhydrAMINE 25mg capsule PO PRN (18:05)
[2024-11-21] MEDS ORDERED: ondansetron 4mg rapidly disintigrating tab PO PRN (18:05)
[2024-11-21] MEDS ORDERED: diphenhydrAMINE 50 mg/ml inj IV PRN (18:05)
[2024-11-21] MEDS ORDERED: ondansetron/PF 4mg/2ml inj IV PRN (18:05)
[2024-11-21] MEDS ORDERED: acetaminophen 650mg rectal suppository RC PRN (18:05)
[2024-11-21] MEDS ORDERED: HYDROcodone/acetaminophen 10/325mg tab PO PRN (18:05)
[2024-11-21] MEDS ORDERED: morphine 2 MG/ML inj. syringe IV PRN ×2 (18:05)
[2024-11-21] MEDS ORDERED: magnesium hydroxide 30ml (MOM) UD suspension PO PRN (18:05)
[2024-11-21] MEDS ORDERED: ipratropium/albuterol 3ml nebule NEB PRN (18:05)
[2024-11-21] MEDS ORDERED: mag hydrox/Alum hydrox/simeth 30ml oral suspension PO PRN (18:05)
[2024-11-21] MEDS ORDERED: acetaminophen 325mg tablet PO PRN (18:05)
[2024-11-21] MEDS: diltiazem-NS 100mg/100ml 100 ML IV SCH (18:15)
[2024-11-21 18:31] VITALS: PULSE 111; RESP 18; O2SAT 99
[2024-11-21] MEDS: albuterol 2.5 MG/3 ML nebule NEB ONE (18:31)
[2024-11-21] MEDS: ipratropium 0.5 MG/2.5ML nebule IH ONE (18:31)
[2024-11-21 18:42] LABS: MAGNESIUM 1.8 MG/DL (1.5-2.4); PHOSPHORUS 3.6 MG/DL (2.3-4.5)
[2024-11-21 18:44] VITALS: PULSE 101; RESP 18
[2024-11-21 18:44] LABS: APTT 30 SECONDS (22-32); D-DIMER 1.51 MG/L FEU (0-0.50); INR 1.2 INR; PROTHROMBIN TIME 12.3 SECONDS (9.0-12.0)
[2024-11-21] MEDS: CefTRIAXone 2gm/D5W 50ml BAG 50 ML IV ONE (19:21)
[2024-11-21] MEDS: methylPREDNISolone sod succ 125mg/2ml vial IV ONE (19:22)
[2024-11-21] MEDS: metoprolol tartrate 50mg tablet PO ONE (19:23)
[2024-11-21] MEDS: furosemide 10 MG/1 ML 10ml inj IV SCH (19:23)
[2024-11-21] MEDS: docusate sod 100mg capsule PO SCH (20:00)
[2024-11-21] MEDS: methylPREDNISolone sod succ 125mg/2ml vial IV SCH (20:00)
[2024-11-21] MEDS: azithromycin/NS 500mg/250ml 250 ML IV ONE (20:05)
[2024-11-21 20:19] LABS: BILIRUBIN,URINE NEGATIVE (Neg); CLARITY,URINE CLEAR (Clear); COLOR,URINE YELLOW (Yellow); GLUCOSE, URINE NEGATIVE (Neg); KETONES,URINE NEGATIVE (Neg); LEUKOCYTE ESTERASE ,URINE NEGATIVE (Neg); NITRITES, URINE NEGATIVE (Neg); OCCULT BLOOD,URINE MODERATE (Neg); PROTEIN,URINE NEGATIVE (Neg); UROBILINOGEN,URINE 0.2 E.U/dL (0.2-1.0)
[2024-11-21 20:25] LABS: UA COLLECTION TYPE CLN CATCH MIDSTREAM
[2024-11-21 20:26] LABS: BACTERIA,URINE NONE SEEN /HPF (Neg); SQUAMOUS EPITHELIAL CELL,UR FEW /LPF (FEW); WBC,URINE NONE SEEN /HPF (0-4)
[2024-11-21 20:33] LABS: URINE AMPHETAMINE SCREEN POSITIVE (Neg); URINE BARBITUATE SCREEN NEGATIVE (Neg); URINE BENZODIAZEPINES SCREEN NEGATIVE (Neg); URINE CANNABINOID SCREEN NEGATIVE (Neg); URINE COCAINE SCREEN NEGATIVE (Neg); URINE METHADONE SCREEN NEGATIVE (Neg); URINE OPIATE SCREEN NEGATIVE (Neg); URINE PHENCYCLIDINE SCREEN NEGATIVE (Neg)
[2024-11-21] MEDS ORDERED: temazepam 15mg capsule PO PRN (21:00)
[2024-11-22 01:38] LABS: BASOPHILS % (AUTO) 0.2 % (0-1); EOSINOPHILS % (AUTO) 0 % (0-6); HEMATOCRIT 38.4 % (35.0-45.0); HEMOGLOBIN 13.1 g/dl (12.0-16.0); LYMPHOCYTES # (AUTO) 0.4 X10'3 (1.1-4.8); LYMPHOCYTES % (AUTO) 13.7 % (21-51); MEAN CORPUSCULAR HEMOGLOBIN 30.2 PG (27.0-31.0); MEAN CORPUSCULAR HGB CONC 34.2 g/dL (33.0-36.5); MEAN CORPUSCULAR VOLUME 88.1 FL (78-98); MEAN PLATELET VOLUME 8.8 FL (7.4-10.4); MONOCYTES % (AUTO) 1.5 % (2-12); NEUTROPHILS # (AUTO) 2.7 X10'3 (1.8-7.7); NEUTROPHILS % (AUTO) 84.6 % (42-75); PLATELET COUNT 85 X10'3 (140-440); RED BLOOD COUNT 4.36 X10'6 (4.20-5.60); RED CELL DISTRIBUTION WIDTH 15.5 % (11.5-14.5); WHITE BLOOD COUNT 3.2 X10'3 (4.5-11.0)
[2024-11-22 01:55] LABS: ALANINE AMINOTRANSFERASE 52 U/L (12-78); ALBUMIN/GLOBULIN RATIO 0.5 (1.1-1.5); ALKALINE PHOSPHATASE 64 IU/L (46-116); ANION GAP 7 (8-16); ASPARTATE AMINO TRANSFERASE 72 U/L (10-37); BLOOD UREA NITROGEN 24 MG/DL (7-18); BUN/CREATININE RATIO 20.3 (10.0-20.0); CALCIUM 8.4 MG/DL (8.5-10.1); CHLORIDE 102 MMOL/L (99-107); CREATININE 1.18 MG/DL (0.40-0.90); POTASSIUM 3.1 MMOL/L (3.5-5.1); SODIUM 137 MMOL/L (135-145); TOTAL CARBON DIOXIDE 28.1 MMOL/L (24-32); TOTAL PROTEIN 8.6 G/DL (6.4-8.2); eCRCL 43 ML/MIN; eGFR 46 ML/MIN
[2024-11-22 01:58] LABS: CHOL/HDL RATIO 1.7 (0.00-4.99); CHOLESTEROL 127 MG/DL (0-200); HDL CHOLESTEROL 75 MG/DL (35-60); LDL CHOLESTEROL 43 MG/DL (50-100); TRIGLYCERIDES 47 MG/DL (20-135)
[2024-11-22 02:01] LABS: GLUCOSE 257 MG/DL (70-104)
[2024-11-22] MEDS: HYDROcodone/acetaminophen 5mg/325mg tablet PO PRN (06:20)
[2024-11-22] MEDS: CefTRIAXone/D5W-Rocephin 1gm 50 ML IV SCH (08:12)
[2024-11-22] MEDS: azithromycin/NS 500mg/250ml 250 ML IV SCH (08:44)
[2024-11-22 13:15] VITALS: BP 135/53; PULSE 82; RESP 16; TEMP 96.9; O2SAT 95
[2024-11-22 15:00] VITALS: BP 135/85; PULSE 74; RESP 14; TEMP 98.1; O2SAT 96
[2024-11-22] MEDS: pneumococcal 23-VAL P-sac vacc 25 mcg/0.5ml vial IMVAC ONE (15:10)
[2024-11-22 17:11] VITALS: RESP 16; O2SAT 95
[2024-11-22 18:00] VITALS: BP 148/75; PULSE 78; RESP 20; TEMP 98.2; O2SAT 94
[2024-11-22 20:00] VITALS: RESP 20; O2SAT 94
[2024-11-22 22:00] VITALS: BP 125/67; PULSE 97; RESP 18; TEMP 97.3; O2SAT 96
[2024-11-23] VITALS (8 sets, daily range): BP systolic 126–171; BP diastolic 64–88; PULSE 87–119; RESP 17–26; TEMP 97.6–98.4; O2SAT 94–99
[2024-11-23 06:14] LABS: BASOPHILS % (AUTO) 0.1 % (0-1); EOSINOPHILS % (AUTO) 0 % (0-6); HEMATOCRIT 35.9 % (35.0-45.0); HEMOGLOBIN 12.1 g/dl (12.0-16.0); LYMPHOCYTES # (AUTO) 0.8 X10'3 (1.1-4.8); LYMPHOCYTES % (AUTO) 9.2 % (21-51); MEAN CORPUSCULAR HEMOGLOBIN 29.7 PG (27.0-31.0); MEAN CORPUSCULAR HGB CONC 33.7 g/dL (33.0-36.5); MEAN CORPUSCULAR VOLUME 88.3 FL (78-98); MEAN PLATELET VOLUME 9.8 FL (7.4-10.4); MONOCYTES # (AUTO) 0.4 X10'3 (0-0.9); NEUTROPHILS # (AUTO) 7.7 X10'3 (1.8-7.7); NEUTROPHILS % (AUTO) 86.7 % (42-75); PLATELET COUNT 96 X10'3 (140-440); RED BLOOD COUNT 4.06 X10'6 (4.20-5.60); WHITE BLOOD COUNT 8.8 X10'3 (4.5-11.0)
[2024-11-23 06:50] LABS: ALANINE AMINOTRANSFERASE 42 U/L (12-78); ALBUMIN/GLOBULIN RATIO 0.5 (1.1-1.5); ALKALINE PHOSPHATASE 60 IU/L (46-116); ANION GAP 8 (8-16); ASPARTATE AMINO TRANSFERASE 43 U/L (10-37); BILIRUBIN,TOTAL 1.5 MG/DL (0.1-1.0); BLOOD UREA NITROGEN 30 MG/DL (7-18); CALCIUM 8.8 MG/DL (8.5-10.1); CHLORIDE 103 MMOL/L (99-107); CREATININE 0.81 MG/DL (0.40-0.90); POTASSIUM 3.3 MMOL/L (3.5-5.1); SODIUM 141 MMOL/L (135-145); TOTAL CARBON DIOXIDE 30.3 MMOL/L (24-32); TOTAL PROTEIN 8.5 G/DL (6.4-8.2); eCRCL 62 ML/MIN; eGFR 70 ML/MIN
[2024-11-23 06:54] LABS: GLUCOSE 130 MG/DL (70-104)
[2024-11-23] MEDS ORDERED: potassium Cl 20 mEq SR tablet PO PRN (08:15)
[2024-11-23] MEDS ORDERED: potassium Cl 40MEQ/1/2NS 520ml 520 ML IV PRN (08:15)
[2024-11-23] MEDS ORDERED: magnesium sulf-water 2g/50mL 50 ML IV PRN (08:15)
[2024-11-23] MEDS ORDERED: magnesium Cl slow-release 64mg tablet PO PRN (08:15)
[2024-11-23] MEDS ORDERED: magnesium sulf-water 4G/100mL 100 ML IV PRN (08:15)
[2024-11-23] MEDS: potassium Cl 20 mEq SR tablet PO PRN (08:27)
[2024-11-23] MEDS: K and/or MAG REPLACEMENT MC SCH (20:00)
[2024-11-24 02:00] VITALS: BP 159/64; PULSE 96; RESP 16; TEMP 98; O2SAT 93
[2024-11-24 06:34] LABS: BASOPHILS % (AUTO) 0.2 % (0-1); EOSINOPHILS % (AUTO) 0 % (0-6); HEMATOCRIT 37.4 % (35.0-45.0); HEMOGLOBIN 12.8 g/dl (12.0-16.0); LYMPHOCYTES # (AUTO) 0.7 X10'3 (1.1-4.8); LYMPHOCYTES % (AUTO) 8.7 % (21-51); MEAN CORPUSCULAR HEMOGLOBIN 30.1 PG (27.0-31.0); MEAN CORPUSCULAR HGB CONC 34.1 g/dL (33.0-36.5); MEAN CORPUSCULAR VOLUME 88.4 FL (78-98); MEAN PLATELET VOLUME 9.4 FL (7.4-10.4); MONOCYTES # (AUTO) 0.3 X10'3 (0-0.9); MONOCYTES % (AUTO) 3.1 % (2-12); NEUTROPHILS # (AUTO) 7.4 X10'3 (1.8-7.7); PLATELET COUNT 114 X10'3 (140-440); RED BLOOD COUNT 4.23 X10'6 (4.20-5.60); RED CELL DISTRIBUTION WIDTH 15.1 % (11.5-14.5); WHITE BLOOD COUNT 8.5 X10'3 (4.5-11.0)
[2024-11-24 06:48] LABS: ALANINE AMINOTRANSFERASE 35 U/L (12-78); ALBUMIN 2.8 G/DL (3.4-5.0); ALBUMIN/GLOBULIN RATIO 0.5 (1.1-1.5); ALKALINE PHOSPHATASE 59 IU/L (46-116); ANION GAP 5 (8-16); ASPARTATE AMINO TRANSFERASE 34 U/L (10-37); BILIRUBIN,TOTAL 1.6 MG/DL (0.1-1.0); BLOOD UREA NITROGEN 27 MG/DL (7-18); BUN/CREATININE RATIO 30.7 (10.0-20.0); CALCIUM 8.4 MG/DL (8.5-10.1); CHLORIDE 100 MMOL/L (99-107); CREATININE 0.88 MG/DL (0.40-0.90); MAGNESIUM 2.4 MG/DL (1.5-2.4); POTASSIUM 3.4 MMOL/L (3.5-5.1); SODIUM 138 MMOL/L (135-145); TOTAL CARBON DIOXIDE 32.9 MMOL/L (24-32); TOTAL PROTEIN 8.5 G/DL (6.4-8.2); eCRCL 57 ML/MIN; eGFR 64 ML/MIN
[2024-11-24 06:54] LABS: GLUCOSE 138 MG/DL (70-104)
[2024-11-24 07:00] VITALS: BP 145/50; PULSE 51; RESP 18; TEMP 98; O2SAT 94
[2024-11-24] MEDS: acetaminophen 325mg tablet PO PRN (08:03)
[2024-11-24 11:00] VITALS: BP 168/89; PULSE 103; RESP 14; TEMP 97.8; O2SAT 98
[2024-11-24 11:30] VITALS: BP 158/69; PULSE 114
[2024-11-24] MEDS: PERFLUTREN PROTEIN-A MICROSPHR (Optison) 0.22 MG/ML 3ML VIAL IV ONE (12:30)
[2024-11-24] MEDS: metoprolol tartrate 50mg tablet PO ONE (15:07)
[2024-11-24] MEDS: metoprolol tartrate 50mg tablet PO SCH (19:43)
[2024-11-24] MEDS: apixaban 5mg tablet PO SCH (19:45)
[2024-11-24 20:00] VITALS: RESP 19; O2SAT 96
[2024-11-24 22:00] VITALS: BP 158/87; PULSE 95; RESP 19; TEMP 97.5; O2SAT 96
[2024-11-25 02:00] VITALS: BP 160/73; PULSE 84; RESP 15; TEMP 97.8; O2SAT 90
[2024-11-25 06:41] LABS: BASOPHILS % (AUTO) 0.1 % (0-1); EOSINOPHILS % (AUTO) 0 % (0-6); HEMATOCRIT 42.1 % (35.0-45.0); HEMOGLOBIN 14.1 g/dl (12.0-16.0); MEAN CORPUSCULAR HEMOGLOBIN 29.6 PG (27.0-31.0); MEAN CORPUSCULAR HGB CONC 33.5 g/dL (33.0-36.5); MEAN CORPUSCULAR VOLUME 88.5 FL (78-98); MEAN PLATELET VOLUME 9.4 FL (7.4-10.4); MONOCYTES # (AUTO) 2.2 X10'3 (0-0.9); MONOCYTES % (AUTO) 16.5 % (2-12); NEUTROPHILS # (AUTO) 9.3 X10'3 (1.8-7.7); NEUTROPHILS % (AUTO) 68.4 % (42-75); PLATELET COUNT 153 X10'3 (140-440); RED BLOOD COUNT 4.75 X10'6 (4.20-5.60); RED CELL DISTRIBUTION WIDTH 15.7 % (11.5-14.5); WHITE BLOOD COUNT 13.5 X10'3 (4.5-11.0)
[2024-11-25 07:00] VITALS: BP 142/95; PULSE 84; RESP 20; TEMP 98.3; O2SAT 92
[2024-11-25 07:06] LABS: ALANINE AMINOTRANSFERASE 37 U/L (12-78); ALBUMIN/GLOBULIN RATIO 0.5 (1.1-1.5); ALKALINE PHOSPHATASE 69 IU/L (46-116); ANION GAP 6 (8-16); ASPARTATE AMINO TRANSFERASE 37 U/L (10-37); BILIRUBIN,TOTAL 1.6 MG/DL (0.1-1.0); BLOOD UREA NITROGEN 31 MG/DL (7-18); BUN/CREATININE RATIO 30.4 (10.0-20.0); CALCIUM 8.5 MG/DL (8.5-10.1); CHLORIDE 100 MMOL/L (99-107); CREATININE 1.02 MG/DL (0.40-0.90); MAGNESIUM 2.3 MG/DL (1.5-2.4); POTASSIUM 3.8 MMOL/L (3.5-5.1); SODIUM 137 MMOL/L (135-145); TOTAL CARBON DIOXIDE 31.5 MMOL/L (24-32); eCRCL 49 ML/MIN; eGFR 54 ML/MIN
[2024-11-25 07:36] LABS: GLUCOSE 103 MG/DL (70-104)
[2024-11-25] MEDS: levoTHYROXINE 25mcg tablet PO SCH (08:31)
[2024-11-25] MEDS: predniSONE 20 mg tablet PO SCH (08:32)
[2024-11-25] MEDS: losartan 25mg tablet PO SCH (08:33)
[2024-11-25] MEDS ORDERED: CEFD300C3 PO (10:36)
[2024-11-25] MEDS ORDERED: METH4TAB81 PO (10:36)
[2024-11-25] MEDS ORDERED: ALBU90AE INH (10:36)
[2024-11-25] MEDS ORDERED: ASPI81TA52 PO (10:36)
[2024-11-25] MEDS ORDERED: FLUT1DIS4 INH (10:36)
[2024-11-25 10:54] LABS: PLATELET ESTIMATE NORMAL; TOTAL CELLS COUNTED 100
[2024-11-25 11:00] VITALS: BP 158/73; PULSE 92; RESP 21; TEMP 98.1; O2SAT 94
== END 2024-11-25 15:10 | disposition home or self-care (01) | DRG 177 ==
LOC: ER 15:05 → ED HOLD 18:13 → PCU 3S 11-22 13:21
PROVIDERS: ADMIT Family Medicine; ATTEND Family Medicine
PROC: CB121ZZ Planar Nuclear Medicine Imaging of Lungs and Bronchi using Technetium 99m (Tc-99m) (ICD-10-PCS; principal; 2024-11-23)
DX: J15.69 Pneumonia due to other Gram-negative bacteria (principal); I50.33 Acute on chronic diastolic (congestive) heart failure; J96.01 Acute respiratory failure with hypoxia; J44.1 Chronic obstructive pulmonary disease with (acute) exacerbation; N17.9 Acute kidney failure, unspecified; J44.0 Chronic obstructive pulmonary disease with (acute) lower respiratory infection; R65.10 Systemic inflammatory response syndrome (SIRS) of non-infectious origin without acute organ dysfunction; I48.20 Chronic atrial fibrillation, unspecified; I11.0 Hypertensive heart disease with heart failure; J15.9 Unspecified bacterial pneumonia; F15.129 Other stimulant abuse with intoxication, unspecified; E03.9 Hypothyroidism, unspecified; G89.4 Chronic pain syndrome; D69.6 Thrombocytopenia, unspecified; M51.369 Other intervertebral disc degeneration, lumbar region without mention of lumbar back pain or lower extremity pain; K21.9 Gastro-esophageal reflux disease without esophagitis; I27.20 Pulmonary hypertension, unspecified; Z88.5 Allergy status to narcotic agent; Z79.01 Long term (current) use of anticoagulants; Z79.899 Other long term (current) drug therapy; Z87.891 Personal history of nicotine dependence
CPT/HCPCS: 36415; 71045; 71250; 78582; 80053; 80061; 80305; 81001; 83036; 83605; 83735; 83880; 84100; 84145; 84484; 85007; 85025; 85379; 85610; 85730; 87040; 87502; 87503; 93005; 93306; 94640; 94760; 99285; A4615; A6258; A9539; A9540; G0378; J0456; J0696; J1940; J2919; J7030; J7512